=== PATIENT | male | born 1995 | race Two or more races ===

== ENCOUNTER 2019-02-28 13:23 | Emergency (ER) | payer OTHER ==
[2019-02-28 13:34] VITALS: BMI 24.3
--- NOTE | 2019-02-28 14:54 | PDOC ---
History of Present Illness - General Chief Complaint: Pain, Acute Stated Complaint: UPPER/LOWER BACK Time Seen by Provider: 02/28/19 13:51 History Source: Patient Exam Limitations: No Limitations - History of Present Illness Initial Comments: 02/28/19 14:26 23 yo male pmh of wrestling accident s/p C4-C5 spinal cord damage with bilateral LE paraplegia, self catheterizes and uses suppository for BM presents to the ED for 2 weeks of worsening back pain. Pain is located left lateral lower back with radiation to his flank, described as burning, made worse with movement. Denies midline pain or recent trauma to the area however, admits to raising the le Pt does admit to recent increased frequency/production of urine within the last 3 days, denies F/C/N/V, abdominal pain, CP, SOB or new neurological symptoms such as changes in sensation around the anus or new loss of sensation to the lower ext. Past History - Past Medical History Allergies/Adverse Reactions: Allergies Allergy/AdvReac Type Severity Reaction Status Date / Time grass pollen Allergy Verified 02/28/19 13:36 No Known Drug Allergies Allergy Verified 02/28/19 13:36 Home Medications: Ambulatory Orders Baclofen [Lioresal Intrathecal] 20 mcg IT BID 02/28/19 Calcium Carbonate [Calcium] 500 mg PO DAILY 02/28/19 Cetirizine HCl [Zyrtec -] 10 mg PO DAILY 02/28/19 Duloxetine HCl 60 mg PO DAILY 02/28/19 Fludrocortisone Acetate 0.1 mg PO BID 02/28/19 Methylcellulose [Fiber] 500 mg PO DAILY 02/28/19 Midodrine HCl 2.5 mg PO TID 02/28/19 Mirabegron [Myrbetriq] 50 mg PO DAILY 02/28/19 Omeprazole 20 mg PO DAILY 02/28/19 Solifenacin Succinate [Vesicare -] 10 mg PO DAILY 02/28/19 COPD: No HTN: Yes Other medical history: QUADRIPLEGIC - Suicide/Smoking/Psychosocial Hx Smoking History: Never smoked Hx Alcohol Use: No Drug/Substance Use Hx: No *Physical Exam - Vital Signs Last Vital Signs Temp Pulse Resp BP Pulse Ox 98 F 70 17 104/54 L 98 02/28/19 13:32 02/28/19 13:32 02/28/19 13:32 02/28/19 13:32 02/28/19 13:32 *DC/Admit/Observation/Transfer Diagnosis at time of Disposition: Left low back pain Qualifiers: Chronicity: unspecified Sciatica presence: unspecified whether sciatica present Qualified Code(s): M54.5 - Low back pain - Discharge Dispostion Disposition: HOME Condition at time of disposition: Stable Decision to Admit order: No - Referrals Referrals: Chema Webber DO [Staff Physician] - - Patient Instructions Additional Instructions: Please see your Primary Doctor within the next 48 hours. Continue taking calcium supplements and discuss your low calcium levels with your doctor. Make an appointment and see the Orthopedic Doctor referred to you. Continue taking your home dosed medications as prescribed. Use Tylenol over the counter, Ice and rest your back for pain relief. Return to the ER for new or concerning symptoms including but not limited to: excessive prolonged back pain, new changes with functional daily living activities, chest pain or high fevers. Thank you. - Post Discharge Activity
[2019-02-28 15:03] LABS: HEMATOCRIT 42.9 % (35.4-49); HEMOGLOBIN 14.8 GM/dL (11.7-16.9); MCH 31.6 pg (25.7-33.7); MCHC 34.6 g/dl (32.0-35.9); MEAN CELL VOLUME 91.4 fl (80-96); MEAN PLT VOLUME 10.3 fl (7.5-11.1); PLATELET COUNT 167 K/MM3 (134-434); RBC 4.69 M/mm3 (4.00-5.60); WHITE BLOOD COUNT 6.7 K/mm3 (4.0-10.0)
--- NOTE | 2019-02-28 15:14 | PDOC ---
Documentation entered by Aminata Bullard SCRIBE, acting as scribe for Ashwin Chen MD. Ashwin Chen MD: This documentation has been prepared by the Aleah merritt Amanda, SCRIBE, under my direction and personally reviewed by me in its entirety. I confirm that the documentation accurately reflects all work, treatment, procedures, and medical decision making performed by me. Attending Attestation - Resident Resident Name: Damon Garcia - ED Attending Attestation I have performed the following: I have examined & evaluated the patient, The case was reviewed & discussed with the resident, I agree w/resident's findings & plan, Exceptions are as noted - HPI HPI: 02/28/19 14:23 The patient is a 23 year old male with a significant past medical history of paraplegia with limited functions of his upper extremities s/p C4,5 injury wrestling accident 8 years ago (on Baclofen pump, self catheterizes, and uses suppositories daily for BMs), who presents to the ED with 2 weeks of left sided back pain. He states the pain has been progressively increasing over the past week. He reports the pain as a burning sensation which radiates from his left mid back under his scapula to his left flank. He states he lifted his left arm today, felt a pop, and experienced acute increase in pain today. He denies any trauma. He denies any abdominal pain. He denies any new deficits. Pt notes he has had UTIs in the past. He denies chest pain, headache, lightheadedness. He denies fevers, chills, recent illnesses. He denies nausea, vomiting. He denies changes in BMs. - Physicial Exam PE: 02/28/19 15:12 Agree w/ resident exam - Medical Decision Making 02/28/19 15:13 23 M with L sided back pain. Suspect msk pain. Will evaluate for pyelo, as pt self-caths and has h/o UTIs. Pt has baclofen pump, will obtain plain films to assess for placement. Also CXR to r/o pneumo. 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 He takes calcium supplements Given chronicity of hypoCa and lack of EKG findings or symptoms, no indication for IV Ca repletion 02/28/19 17:01 UA negative Dispo pending XRs 02/28/19 17:14 XRs negative Will DC with ortho f/u Pt is well appearing, with normal vitals. Clinically stable for DC at this time. I discussed the physical exam findings, ancillary test results and final diagnoses with the patient. I answered all of the patient's questions. The patient was satisfied with the care received and felt comfortable with the discharge plan and treatment plan. The patient agrees to follow up with the primary care physician within 24-72 hours.
[2019-02-28 15:35] LABS: ALK PHOS 80 U/L (45-117); ANION GAP 4 MMOL/L (8-16); BILIRUBIN,TOTAL 1.5 mg/dL (0.2-1); BLOOD UREA NITROGEN 14 mg/dL (7-18); CHLORIDE 105 mmol/L (98-107); CO2 32 mmol/L (21-32); CREATININE 0.8 mg/dL (0.55-1.3); GLUCOSE,RANDOM 110 mg/dL (74-106); POTASSIUM 4.1 mmol/L (3.5-5.1); SGOT/AST 15 U/L (15-37); SGPT/ALT 28 U/L (13-61); SODIUM 140 mmol/L (136-145); TOT PROT 7.1 g/dl (6.4-8.2)
[2019-02-28 15:39] LABS: CALCIUM 6.2 mg/dL (8.5-10.1)
[2019-02-28] MEDS ORDERED: CALCIUM GLUCONATE 10% - 1,000 MG/10 ML VIAL IVPUSH ONE (16:02)
[2019-02-28] MEDS ORDERED: CALCIUM GLUCONATE 10% - 1,000 MG/10 ML VIAL ONE (16:29)
[2019-02-28 16:53] LABS: EPI CELLS 0.9 /HPF (0-5/HPF); PH,URINE 8.5 (5.0-8.0); URINE APPEARANCE CLEAR; URINE BACTERIA 4.4 /hpf (NEGATIVE); URINE BILIRUBIN NEGATIVE (NEGATIVE); URINE CASTS 0 /lpf (0-8); URINE COLOR YELLOW; URINE GLUCOSE (UA) NEGATIVE (NEGATIVE); URINE KETONE NEGATIVE (NEGATIVE); URINE LEUK ESTERASE 1+ (NEGATIVE); URINE NITRITE NEGATIVE (NEGATIVE); URINE PROTEIN NEGATIVE (NEGATIVE); URINE RBC 0 /hpf (0-4); URINE UROBILINOGEN 0.2 mg/dL (0.2-1.0); URINE WBC 1 /hpf (0-5)
[2019-02-28 18:09] VITALS: PULSE 59; TEMP 98.1
[2019-02-28 19:09] VITALS: BP 117/65
--- NOTE | 2019-03-01 11:26 | EKG ---
Test Reason : Blood Pressure : / mmHG Vent. Rate : 063 BPM Atrial Rate : 063 BPM P-R Int : 146 ms QRS Dur : 092 ms QT Int : 414 ms P-R-T Axes : 052 071 055 degrees QTc Int : 423 ms POOR DATA QUALITY, INTERPRETATION MAY BE ADVERSELY AFFECTED NORMAL SINUS RHYTHM POSSIBLE LEFT ATRIAL ENLARGEMENT NO PREVIOUS ECGS AVAILABLE Confirmed by BRITTANY GONZALES MD ([id number]) on 03/01/2019 11:25:50 AM Referred By: Confirmed By:BRITTANY GONZALES MD
== END 2019-02-28 18:40 | disposition home or self-care (01) ==
LOC: JER 13:23
PROC: 3E0337Z Introduction of Electrolytic and Water Balance Substance into Peripheral Vein, Percutaneous Approach (ICD-10-PCS; principal; 2019-02-28)
DX: M54.5 Low back pain (principal); G82.54 Quadriplegia, C5-C7 incomplete; S14.155S Other incomplete lesion at C5 level of cervical spinal cord, sequela; Y93.72 Activity, wrestling; E83.51 Hypocalcemia
CPT/HCPCS: 36415; 71046-TC-FY; 72070-TC-FY; 72100-TC-FY; 80053; 81003; 85027; 87086; 87186; 93005; 93010; 99283-25

== ENCOUNTER 2019-06-11 11:29 | Inpatient (IN) | payer OTHER ==
[2019-06-11] MEDS ORDERED: SODIUM CHLORIDE 2,245 ML IV ONE (12:48)
[2019-06-11 13:05] LABS: URINE APPEARANCE CLEAR; URINE BILIRUBIN NEGATIVE (NEGATIVE); URINE COLOR YELLOW; URINE GLUCOSE (UA) NEGATIVE (NEGATIVE); URINE KETONE NEGATIVE (NEGATIVE); URINE LEUK ESTERASE 1+ (NEGATIVE); URINE NITRITE NEGATIVE (NEGATIVE); URINE PROTEIN NEGATIVE (NEGATIVE)
--- NOTE | 2019-06-11 13:08 | PDOC ---
History of Present Illness - General Chief Complaint: SIRS, Suspected/Possible Stated Complaint: FEVER Time Seen by Provider: 06/11/19 12:19 History Source: Patient Exam Limitations: No Limitations - History of Present Illness Initial Comments: 06/11/19 13:03 23 yo male pmh of wrestling accident s/p C4-C5 spinal cord damage with bilateral LE paraplegia and automonic dysreflexia, self catheterizes and uses suppository for BM presents to the ED for 1 week of "UTI." Pt reports 1 week of foul smelling, small volume, dark, "sediment filled - almost pus" urine. Feels he is dehydrated despite "lots" of water intake, poor PO over the past week due to worsening nausea, no emesis. Since Monday, febrile with temperature ranging 101-105 by report, also difficulty with sleep over this time and tension headache. Followed by urology at [facility], prescribed Augmentin 875 yesterday for E. coli positive urine. Presents for continued / systemic symptoms. NKDA PMH: as above Past History - Travel Traveled outside of the country in the last 30 days: No Close contact w/someone who was outside of country & ill: No - Past Medical History Allergies/Adverse Reactions: Allergies Allergy/AdvReac Type Severity Reaction Status Date / Time grass pollen Allergy Verified 02/28/19 13:36 No Known Drug Allergies Allergy Verified 02/28/19 13:36 Home Medications: Ambulatory Orders Baclofen [Lioresal Intrathecal] 20 mcg IT BID 02/28/19 Calcium Carbonate [Calcium] 500 mg PO DAILY 02/28/19 Cetirizine HCl [Zyrtec -] 10 mg PO DAILY 02/28/19 Duloxetine HCl 60 mg PO DAILY 02/28/19 Fludrocortisone Acetate 0.1 mg PO AM 02/28/19 Methylcellulose [Fiber] 500 mg PO DAILY 02/28/19 Midodrine HCl 2.5 mg PO BID 02/28/19 Mirabegron [Myrbetriq] 50 mg PO HS 02/28/19 Omeprazole 20 mg PO DAILY 02/28/19 Solifenacin Succinate [Vesicare -] 10 mg PO DAILY 02/28/19 Bisacodyl [Magic Bullet] 10 mg [place] DAILY PRN 06/11/19 Miralax 119 gm Btl - 17 grams PO DAILY MDD 2 06/11/19 Valtrex - 06/11/19 Baclofen 20 mg PO BID 06/12/19 Tizanidine HCl 4 mg PO BID 06/12/19 COPD: No HTN: Yes - Suicide/Smoking/Psychosocial Hx Smoking History: Never smoked Hx Alcohol Use: No Drug/Substance Use Hx: No Review of Systems - Review of Systems Able to Perform ROS?: Yes Is the patient limited Persian proficient: No Constitutional: Yes: See HPI, Chills, Fever. No: Night Sweats, Weakness HEENTM: No: Symptoms Reported Respiratory: No: Symptoms reported, Cough, Shortness of Breath, Wheezing, Productive cough Cardiac (ROS): No: Symptoms Reported, Chest Pain, Irregular Heart Rate, Palpitations, Syncope, Chest Tightness ABD/GI: Yes: See HPI, Nausea. No: Vomiting : Yes: Burning, Dysuria, Frequency, Pain. No: Flank Pain Musculoskeletal: No: Symptoms Reported Integumentary: No: Symptoms Reported Neurological: Yes: Headache All Other Systems: Reviewed and Negative *Physical Exam - Vital Signs Last Vital Signs Temp Pulse Resp BP Pulse Ox 101.8 F H 85 19 105/51 L 97 06/11/19 11:42 06/11/19 11:42 06/11/19 11:42 06/11/19 11:42 06/11/19 11:42 - Physical Exam Comments: 06/11/19 13:16 Vitals reviewed, febrile (102.5 on repeat), hypotensive Gen: Paraplegic man, laying comfortably in bed, pleasant, cooperative CV: RRR, nl s1/s2, no murmurs appreciated Pulm: CTABL, normal WOB, no wheezes / rales / rhonchi Abd: soft, non-distended, surgical scars, TTP suprapubically Back: CVA deferred until repositioning 2/2 paralysis Skin: WWP, dry, no rashes Pulses: 2+ radial, PT Neuro: A&Ox3, EOMI, CN grossly intact, moving UE equally with good strength, paralysis chest-down 06/11/19 15:17 -Left CVA tenderness -No genital / sacral ulcerations or cellulitis Repeat PE for Septic Shock - Vital Signs Vital Signs: Vital Signs Temperature 101.8 F H 06/11/19 11:42 Pulse Rate 85 06/11/19 11:42 Respiratory Rate 19 06/19 11:42 Blood Pressure 105/51 L 06/11/19 11:42 O2 Sat by Pulse Oximetry (%) 97 06/11/19 11:42 I have reviewed the most recent vital signs: Yes - PE CV for Spetic Shock: Regular Rhythm, Regular Rate Lungs: Lungs Clear, Normal Breath Sounds Vascular: Left Radial: 2+, Right Radial: 2+, Left Doralis Pedis: 2+, Right Dorsalis Pedis: 2+ Capillary Refill: <3 seconds Skin exam: Normal Color, Warm, Dry ED Treatment Course - LABORATORY CBC & Chemistry Diagram: 06/14/19 08:07 06/14/19 08:07 - RADIOLOGY Radiology Studies Ordered: Category Date Time Status CHEST X-RAY PORTABLE* [RAD] Stat Radiology 06/11/19 12:48 Ordered Medical Decision Making - Medical Decision Making 06/11/19 13:10 23 yo male pmh of wrestling accident s/p C4-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 Hypotensive, febrile. Concerning for Sepsis, likely UTI source, r/o pyelo, bacteremia. -Sepsis order set -Fregoso (as opposed to straight cath, pt request) -1g Tylenol, IV -Likely broad spectrum ABX following cultures 06/11/19 15:15 -Febrile reduced to 100.6 rectal after tylenol -s/p 1g ceftriaxone -CTAP w/contrast for pyelo evaluation, NCHCT -On re-examination patient without genital / perianal /sacral ulcerations, crepitus, or cellulitis Dispo: Admit to inpatient for sepsis 2/2 pyelonephritis *DC/Admit/Observation/Transfer Diagnosis at time of Disposition: Systemic inflammatory response syndrome (SIRS) Sepsis Qualifiers: Sepsis type: sepsis due to unspecified organism Sepsis acute organ dysfunction status: unspecified Qualified Code(s): A41.9 - Sepsis, unspecified organism - Discharge Dispostion Condition at time of disposition: Guarded - Referrals - Patient Instructions - Post Discharge Activity
[2019-06-11] MEDS ORDERED: ACETAMINOPHEN INJECTION 100 ML IVPB ONE (13:13)
[2019-06-11] MEDS ORDERED: ACETAMINOPHEN 1000 MG/100 ML VIAL (NON FORMULARY) IVPB ONE ×2 (13:13→18:12)
[2019-06-11 13:23] LABS: EPI CELLS 5.3 /HPF (0-5/HPF); HYALINE CASTS 5.25 /lpf (0-8); URINE BACTERIA 0.8 /hpf (NEGATIVE); URINE RBC 0.3 /hpf (0-4); URINE WBC 0.5 /hpf (0-5)
[2019-06-11 13:27] LABS: VENOUS PC02 41.1 mmHg (41-51); VENOUS PH 7.43 (7.31-7.41); VENOUS PO2 42.1 mmHg (30-40)
[2019-06-11] MEDS ORDERED: CEFTRIAXONE 1,000 MG in DEXTROSE 5%-WATER - 50 ML IVPB ONE (13:28)
[2019-06-11 13:31] LABS: BASO % 0.2 % (0-2.0); LYMPH % 5.4 % (8-40); MCH 31.1 pg (25.7-33.7); MCHC 34.1 g/dl (32.0-35.9); MEAN CELL VOLUME 91.3 fl (80-96); MEAN PLT VOLUME 9.8 fl (7.5-11.1); MONO % 13.5 % (3.8-10.2); NEUT % 80.9 % (42.8-82.8); PLATELET COUNT 146 K/MM3 (134-434); RBC 4.16 M/mm3 (4.00-5.60); RDW 13.5 % (11.9-15.9); WHITE BLOOD COUNT 12.2 K/mm3 (4.0-10.0)
[2019-06-11 13:39] LABS: INR 1.78 (0.83-1.09); PROTHROMBIN TIME (PATIENT) 21.1 SEC (9.7-13.0)
[2019-06-11 13:42] LABS: ACTIVATED PTT 30.4 SECONDS (25.2-36.5)
[2019-06-11 14:03] LABS: ALBUMIN 3.3 g/dl (3.4-5.0); BILIRUBIN,TOTAL 3.7 mg/dL (0.2-1); CALCIUM 8.8 mg/dL (8.5-10.1); POTASSIUM 3.8 mmol/L (3.5-5.1); TOT PROT 6.4 g/dl (6.4-8.2)
[2019-06-11] MEDS ORDERED: CEFTRIAXONE 1 GM/50 ML BAG ONE (14:32)
--- NOTE | 2019-06-11 15:34 | PDOC ---
Documentation entered by Alannah Mcgrath SCRIBE, acting as scribe for Ashwin Chen MD. Ashwin Chen MD: This documentation has been prepared by the nasrinibe, Alannah Mcgrath SCRIBE, under my direction and personally reviewed by me in its entirety. I confirm that the documentation accurately reflects all work, treatment, procedures, and medical decision making performed by me. Attending Attestation - Resident Resident Name: AyoAidan - ED Attending Attestation I have performed the following: I have examined & evaluated the patient, The case was reviewed & discussed with the resident, I agree w/resident's findings & plan, Exceptions are as noted - HPI HPI: 06/11/19 15:34 23 M with h/o C4-C5 spinal cord damage with bilateral LE paraplegia and automonic dysreflexia, self catheterizes, presenting to ED with dysuria and foul smelling urine x 1 week. Pt states he has h/o recurrent UTIs. He states that he went to his PMD yesterday and was started on augmentin. However, today pt began to have L flank pain. Pt has also had fevers at home. - Physicial Exam PE: 06/11/19 15:38 "GENERAL: Awake, alert, and fully oriented, in no acute distress. HEAD: No signs of trauma EYES: PERRLA, EOMI, sclera anicteric, conjunctiva clear ENT: Auricles normal inspection, hearing grossly normal, nares patent, oropharynx clear without exudates. Moist mucosa NECK: Nontender, no stepoffs, Normal ROM, supple, no lymphadenopathy, JVD, or masses LUNGS: Breath sounds equal, clear to auscultation bilaterally. No wheezes, and no crackles HEART: Regular rate and rhythm, normal S1 and S2, no murmurs, rubs or gallops ABDOMEN: Soft, nontender, normoactive bowel sounds. No guarding, no rebound. No masses EXTREMITIES: Normal range of motion, no edema. No clubbing or cyanosis. No cords, erythema, or tenderness NEUROLOGICAL: Cranial nerves II through XII intact. normal cerebellar function SKIN: Warm, Dry, normal turgor, no rashes or lesions noted - Medical Decision Making 06/11/19 15:38 23 M with dysuria, L flank pain, and fever. Suspect pyelo. - Labs, cultures - CXR, UA
--- NOTE | 2019-06-11 16:03 | EKG ---
Test Reason : Blood Pressure : / mmHG Vent. Rate : 094 BPM Atrial Rate : 094 BPM P-R Int : 136 ms QRS Dur : 096 ms QT Int : 350 ms P-R-T Axes : 050 053 045 degrees QTc Int : 437 ms NORMAL SINUS RHYTHM POSSIBLE LEFT ATRIAL ENLARGEMENT INCOMPLETE RBBB BORDERLINE ECG Confirmed by MD JEREL, DAHLIA ([id number]) on 06/11/2019 4:03:06 PM Referred By: Confirmed By:DAHLIA BELTRÁN MD
--- NOTE | 2019-06-11 17:28 | HP ---
Admitting History and Physical - Primary Care Physician PCP: Davy De Oliveira - Admission History of Present Illness: Patient is a 23 year old male with a significant past medical history of C4-C5 spinal cord damage (has implanted baclophen pump), bilateral lower extremity paraplegia and automonic dysreflexia. He self catheterizes approximately 7 times per day and uses sterile technique per patient. He self catherizes, but his aide also assists him. He presents to the ED with c/o of a UTI for approximately one week with subjective fevers of 101F-105F per patient. He reports one week of foul smelling urine with dark sediments and some pus in the urine. He feels weak and dehydrated despite consuming a large amount of water at home. He was prescribed Augmentin from his urologist at another facility and was found to have ecoli in his urine. He took the antibiotics, however, his symptoms worsened overnight which prompted an ED visit. On exam patient is awake, alert and having rigors. He was admitted with a fever of 102.5, mild hypotension, elevated WBC. He received rocephin in the Ed. Overnight will start on Zosyn and awaiting blood and urine cultures. ID and urology to be consulted. imaging: abd/pelvis ct scan with contrast 06/11/2019: heterogenous enhancement of both kidneys, right greater than the left suggestive of bilateral pyelonephritis, right greater than the left. History Source: Patient Limitations to Obtaining History: No Limitations, Physical Impairment - Past Medical History Gastrointestinal: Yes: Other (implanted baclophen pump) - Smoking History Smoking history: Never smoked - Alcohol/Substance Use Hx Alcohol Use: No History of Substance Use: reports: None - Social History Usual Living Arrangement: Yes: Other (has [facility]) History of Recent Travel: No Home Medications - Allergies Allergies/Adverse Reactions: Allergies Allergy/AdvReac Type Severity Reaction Status Date / Time grass pollen Allergy Verified 02/28/19 13:36 No Known Drug Allergies Allergy Verified 02/28/19 13:36 - Home Medications Home Medications: Ambulatory Orders Baclofen [Lioresal Intrathecal] 20 mcg IT BID 02/28/19 Calcium Carbonate [Calcium] 500 mg PO DAILY 02/28/19 Cetirizine HCl [Zyrtec -] 10 mg PO DAILY 02/28/19 Duloxetine HCl 60 mg PO DAILY 02/28/19 Fludrocortisone Acetate 0.1 mg PO AM 02/28/19 Methylcellulose [Fiber] 500 mg PO DAILY 02/28/19 Midodrine HCl 2.5 mg PO BID 02/28/19 Mirabegron [Myrbetriq] 50 mg PO DAILY 02/28/19 Omeprazole 20 mg PO DAILY 02/28/19 Solifenacin Succinate [Vesicare -] 10 mg PO DAILY 02/28/19 Bisacodyl [Magic Bullet] 10 mg [place] DAILY PRN 06/11/19 Miralax 119 gm Btl - 17 grams PO DAILY MDD 2 06/11/19 Valtrex - 06/11/19 Family Disease History - Family Disease History Family Disease History: Other: Grandparent, Father, Mother, Brother, Sister, Son , Daughter Review of Systems - Review of Systems Constitutional: reports: Chills, Fever, Lethargy, Loss of Appetite, Malaise, Weakness Eyes: reports: No Symptoms HENT: reports: No Symptoms Neck: reports: No Symptoms Cardiovascular: reports: No Symptoms Respiratory: reports: No Symptoms Gastrointestinal: reports: No Symptoms Genitourinary: reports: Flank Pain, Incontinence, Pain, Urgency Musculoskeletal: reports: Muscle Weakness Integumentary: reports: No Symptoms Neurological: reports: Weakness Physical Examination Vital Signs: Vital Signs Temperature 99.6 F 06/11/19 16:39 Pulse Rate 82 06/11/19 16:39 Respiratory Rate 16 06/11/19 16:39 Blood Pressure 110/62 06/11/19 16:39 O2 Sat by Pulse Oximetry (%) 100 06/11/19 16:39 Constitutional: Yes: Anxious Eyes: Yes: WNL HENT: Yes: WNL, Atraumatic Neck: Yes: WNL, Supple Cardiovascular: Yes: Regular Rate and Rhythm Respiratory: Yes: Regular Gastrointestinal: Yes: Normal Bowel Sounds, Soft, Other (implanted baclophen pump) Renal/: Yes: CVA Tenderness - Left, CVA Tenderness - Right, Garnica Present Musculoskeletal: Yes: Other (paraplegic) Edema: LLE: Trace, RLE: Trace Integumentary: Yes: WNL Neurological: Yes: Alert, Oriented Psychiatric: Yes: Alert, Oriented Labs: CBC, BMP 06/11/19 13:00 06/11/19 13:00 Imaging - Results Cat Scan: Report Reviewed Problem List - Problems (1) Sepsis Assessment/Plan: hydrate with NS @ 125, start Zosyn q 4 pending ID evaluation. Await urine and blood cultures. Monitor garnica output tylenol IV x 1 now for rigors, then continue PO for fevers ID and urology to be consulted Received Rocephin in the Ed Code(s): A41.9 - SEPSIS, UNSPECIFIED ORGANISM (2) Pyelonephritis of right kidney Assessment/Plan: hydrate with NS @ 125, start Zosyn q 4 pending ID and urology evaluation. Await urine and blood cultures. Code(s): N12 - TUBULO-INTERSTITIAL NEPHRITIS, NOT [facility] ACUTE OR CHRONIC (3) Pyelonephritis of left kidney Assessment/Plan: bilateral heterogenous enhancement of both kidneys per ct scan, right worse than left. consistent with pyelenephritis. Code(s): N12 - TUBULO-INTERSTITIAL NEPHRITIS, NOT [facility] ACUTE OR CHRONIC (4) Functional quadriplegia Assessment/Plan: bed bound, turn and position q 2 maintain bony prominences without skin breakdown Code(s): R53.2 - FUNCTIONAL QUADRIPLEGIA (5) Prophylactic measure Assessment/Plan: fen: ns @ 125cc/hr monitor electrolytes regular diet prophy heparin tid bacid full code Code(s): Z29.9 - ENCOUNTER FOR PROPHYLACTIC MEASURES, UNSPECIFIED Visit type - Emergency Visit Emergency Visit: Yes ED Registration Date: 06/11/19 Care time: The patient presented to the Emergency Department on the above date and was hospitalized for further evaluation of their emergent condition. - New Patient This patient is new to me today: Yes Date on this admission: 06/12/19 - Critical Care Critical Care patient: No
[2019-06-11] MEDS ORDERED: PIPERACILLIN/TAZOB 3.375 GM 3.375 GM in DEXTROSE 5%-WATER - 50 ML IVPB SCH (18:15)
[2019-06-11] MEDS: SODIUM CHLORIDE 1,000 ML IV SCH (18:17)
[2019-06-11] MEDS ORDERED: PIPERACILLIN/TAZOBACTAM 3.375 GM VIAL IVPB ONE (18:54)
[2019-06-11] MEDS ORDERED: DEXTROSE 5%-WATER - 50 ML IVPB ONE (18:54)
[2019-06-11] MEDS: PIPERACILLIN/TAZOB 3.375 GM 3.375 GM in DEXTROSE 5%-WATER - 50 ML IVPB SCH (18:59)
[2019-06-11 20:39] VITALS: BMI 27.4
[2019-06-11] MEDS: FLUDROCORTISONE ACETATE 0.1 MG TABLET (FP) PO SCH (22:31)
[2019-06-11] MEDS: HEPARIN NA (PORCINE) 5,000 UNITS/ML 1ML VIAL SQ SCH (22:31)
[2019-06-12] MEDS ORDERED: PIPERACILLIN/TAZOBACTAM 3.375 GM VIAL IVPB ONE ×3 (01:23→17:47)
[2019-06-12] MEDS ORDERED: DEXTROSE 5%-WATER - 50 ML IVPB ONE ×3 (01:24→17:47)
[2019-06-12] MEDS: PIPERACILLIN/TAZOB 3.375 GM 3.375 GM in DEXTROSE 5%-WATER - 50 ML IVPB SCH ×3 (01:34→17:57)
[2019-06-12] MEDS ORDERED: BISACODYL 10 MG SUPP.RECT PR ONE (01:50)
[2019-06-12] MEDS: ACETAMINOPHEN 325 MG TABLET (FP) PO PRN ×2 (02:11→10:00)
[2019-06-12] MEDS: SODIUM CHLORIDE 1,000 ML IV SCH ×4 (03:14→22:08)
[2019-06-12] MEDS: HEPARIN NA (PORCINE) 5,000 UNITS/ML 1ML VIAL SQ SCH ×3 (06:53→22:04)
[2019-06-12] MEDS ORDERED: PATIENT'S OWN MEDICATION (NON-FORMULARY) (Mirabegron [Myrbetriq] 50 MG) PO SCH (10:00)
[2019-06-12] MEDS: DULoxetine HCL 30 MG CAPSULE.DR PO SCH (10:00)
[2019-06-12] MEDS: FLUDROCORTISONE ACETATE 0.1 MG TABLET (FP) PO SCH ×2 (10:01→11:12)
[2019-06-12] MEDS: LACTOBACILLUS ACIDOPHILUS 1 TABLET PO SCH (10:01)
[2019-06-12] MEDS ORDERED: METHYLCELLULOSE 500 MG PO SCH (10:30)
[2019-06-12] MEDS ORDERED: LORATADINE 10 MG TABLET PO SCH (10:30)
--- NOTE | 2019-06-12 10:39 | PN ---
Progress Note, Physician Chief Complaint: rigors, back pain and nausea History of Present Illness: Patient is a 23 year old male with a significant past medical history of C4-C5 spinal cord damage (has implanted baclophen pump-left side of abdomen which is refilled q 3 months at [facility]), bilateral lower extremity paraplegia and automonic dysreflexia. He self catheterizes approximately 7 times per day and uses sterile technique per patient. He self catherizes, but his aide also assists him. He presents to the ED 06/11/19 with c/o of a UTI for approximately one week with subjective fevers of 101F-105F per patient. He reports one week of foul smelling urine with dark sediments and some pus in the urine. He feels weak and dehydrated despite consuming a large amount of water at home. He was prescribed Augmentin from his urologist at another facility and was found to have ecoli in his urine. He took the antibiotics, however, his symptoms worsened overnight which prompted an ED visit. On exam patient is awake, alert and having rigors. Overnight he was febrile. Overnight he was started on Zosyn and awaiting blood and urine cultures. ID and urology consulted. imaging: abd/pelvis ct scan with contrast 06/11/2019: heterogenous enhancement of both kidneys, right greater than the left suggestive of bilateral pyelonephritis, right greater than the left. - Current Medication List Current Medications: Active Medications Acetaminophen (Ofirmev Injection -) 1,000 mg IVPB Q6H PRN PRN Reason: PAIN OR FEVER Bisacodyl (Dulcolax Suppository -) 10 mg RC DAILY [facility] Calcium Carbonate (Os-Cody 500mg -) 500 mg PO DAILY [facility] Duloxetine HCl (Cymbalta -) 60 mg PO DAILY [facility] Last Admin: 06/12/19 10:00 Dose: 60 mg Fludrocortisone Acetate (Florinef -) 0.1 mg PO BID [facility] Last Admin: 06/12/19 10:01 Dose: 0.1 mg Heparin Sodium (Porcine) (Heparin -) 5,000 unit SQ TID [facility] Last Admin: 06/12/19 06:53 Dose: 5,000 unit Piperacillin Sod/Tazobactam (Sod 3.375 gm/ Dextrose) 50 mls @ 100 mls/hr IVPB Q8H-IV [facility]; Protocol Sodium Chloride (Normal Saline -) 1,000 mls @ 100 mls/hr IV ASDIR [facility] Lactobacillus Acidophilus (Bacid -) 1 tab PO DAILY [facility] Last Admin: 06/12/19 10:01 Dose: 1 tab Midodrine (Proamatine -) 2.5 mg PO BID [facility] Non-Formulary Medication (Mirabegron [Myrbetriq]) 50 mg PO DAILY [facility] Non-Formulary Medication (Cetirizine Hcl) 10 mg PO DAILY [facility] Non-Formulary Medication (Methylcellulose [Fiber]) 500 mg PO DAILY [facility] Non-Formulary Medication (Miralax 119 Gm Btl -) 17 grams PO DAILY [facility] Non-Formulary Medication (Solifenacin Succinate [Vesicare -]) 10 mg PO DAILY [facility] Ondansetron HCl (Zofran Injection) 4 mg IVPUSH Q6H PRN PRN Reason: NAUSEA AND/OR VOMITING - Objective Vital Signs: Vital Signs Temperature 99.6 F 06/12/19 09:30 Pulse Rate 78 06/12/19 09:35 Respiratory Rate 20 06/12/19 09:30 Blood Pressure 160/107 H 06/12/19 09:35 O2 Sat by Pulse Oximetry (%) 99 06/11/19 20:30 Constitutional: Yes: Anxious Eyes: Yes: WNL HENT: Yes: Atraumatic Neck: Yes: Supple Cardiovascular: Yes: Regular Rate and Rhythm Respiratory: Yes: Regular, CTA Bilaterally Gastrointestinal: Yes: Soft, Other (left abdomen with implanted intrathecal pump (baclophen)) ...Rectal Exam: Yes: Deferred Extremities: Yes: WNL Edema: No Wound/Incision: Yes: Clean/Dry Neurological: Yes: WNL, Alert, Oriented Labs: CBC, BMP 06/11/19 13:00 06/11/19 13:00 INR, PTT INR 1.78 (0.83-1.09) H 06/11/19 13:15 Problem List - Problems (1) Sepsis Assessment/Plan: hydrate with NS @ 100, start Zosyn q 6 pending ID evaluation. Await urine and blood cultures. Monitor garnica output - currently clear daryl colored tylenol IV for fevers and pain ID and urology consulted Received Rocephin in the Ed, started on zosyn overnight Code(s): A41.9 - SEPSIS, UNSPECIFIED ORGANISM (2) Pyelonephritis of right kidney Assessment/Plan: hydrate with NS @ 100, start Zosyn q 4 pending ID and urology evaluation. Await urine and blood cultures. Code(s): N12 - TUBULO-INTERSTITIAL NEPHRITIS, NOT SPCF ACUTE OR CHRONIC (3) Pyelonephritis of left kidney Assessment/Plan: bilateral heterogenous enhancement of both kidneys per ct scan, right worse than left. consistent with pyelenephritis. Code(s): N12 - TUBULO-INTERSTITIAL NEPHRITIS, NOT SPCF ACUTE OR CHRONIC (4) Functional quadriplegia Assessment/Plan: bed bound, turn and position q 2 maintain bony prominences without skin breakdown Code(s): R53.2 - FUNCTIONAL QUADRIPLEGIA (5) Prophylactic measure Assessment/Plan: fen: ns @ 100c/hr monitor electrolytes regular diet prophy heparin tid bacid full code Code(s): Z29.9 - ENCOUNTER FOR PROPHYLACTIC MEASURES, UNSPECIFIED Visit type - Emergency Visit Emergency Visit: Yes ED Registration Date: 06/11/19 Care time: The patient presented to the Emergency Department on the above date and was hospitalized for further evaluation of their emergent condition. - New Patient This patient is new to me today: No - Critical Care Critical Care patient: No - Discharge Referral Referred to [facility] Med P.C.: No
--- NOTE | 2019-06-12 11:09 | CON.GU ---
Consult Consult Specialty:: Referred by:: medicine Reason for Consultation:: 23 year old with UTI and neurogenic bladder - History of Present Illness Chief Complaint: 23 year old with UTI and neurogenic bladder History of Present Illness: 23 year old with SC injury and neurogenic bladder. He is under the care of a urologist at [facility]. He self catheterizes. He developed fever and chills and was admitted and garnica cath was placed. urine is clear. - History Source History Provided By: Patient - Past Medical History Gastrointestinal: Yes: Other (implanted baclophen pump) Renal/: Yes: Neurogenic Bladder - Alcohol/Substance Use Hx Alcohol Use: No History of Substance Use: reports: None - Smoking History Smoking history: Never smoked - Social History History of Recent Travel: No Home Medications - Allergies Allergies/Adverse Reactions: Allergies Allergy/AdvReac Type Severity Reaction Status Date / Time grass pollen Allergy Verified 02/28/19 13:36 No Known Drug Allergies Allergy Verified 02/28/19 13:36 - Home Medications Home Medications: Ambulatory Orders Baclofen [Lioresal Intrathecal] 20 mcg IT BID 02/28/19 Calcium Carbonate [Calcium] 500 mg PO DAILY 02/28/19 Cetirizine HCl [Zyrtec -] 10 mg PO DAILY 02/28/19 Duloxetine HCl 60 mg PO DAILY 02/28/19 Fludrocortisone Acetate 0.1 mg PO AM 02/28/19 Methylcellulose [Fiber] 500 mg PO DAILY 02/28/19 Midodrine HCl 2.5 mg PO BID 02/28/19 Mirabegron [Myrbetriq] 50 mg PO DAILY 02/28/19 Omeprazole 20 mg PO DAILY 02/28/19 Solifenacin Succinate [Vesicare -] 10 mg PO DAILY 02/28/19 Bisacodyl [Magic Bullet] 10 mg ME DAILY PRN 06/11/19 Miralax 119 gm Btl - 17 grams PO DAILY [facility] 2 06/11/19 Valtrex - 06/11/19 Family Disease History - Family Disease History Family Disease History: Other: Grandparent, Father, Mother, Brother, Sister, Son , Daughter Review of Systems - Review of Systems Genitourinary: reports: No Symptoms Physical Exam- Vital Signs: Vital Signs Temperature 99.6 F 06/12/19 09:30 Pulse Rate 78 06/12/19 09:35 Respiratory Rate 20 06/12/19 09:30 Blood Pressure 160/107 H 06/12/19 09:35 O2 Sat by Pulse Oximetry (%) 99 06/11/19 20:30 Gastrointestinal: Yes: Soft Renal/: Yes: Garnica Present. No: CVA Tenderness - Left, CVA Tenderness - Right , Hematuria, Incontinence Labs: CBC, BMP 06/11/19 13:00 06/11/19 13:00 Problem List - Problems (1) Pyelonephritis of left kidney Assessment/Plan: CT without obstruction, continue with abx until fevers are gone. May remove garnica and resume self cath thereafter and follow up with his urologist Code(s): N12 - TUBULO-INTERSTITIAL NEPHRITIS, NOT SPCF ACUTE OR CHRONIC (2) Pyelonephritis of right kidney Code(s): N12 - TUBULO-INTERSTITIAL NEPHRITIS, NOT SPCF ACUTE OR CHRONIC
[2019-06-12] MEDS: CALCIUM (OYSTER SHELL) 500 MG TABLET (FP) PO SCH (11:14)
[2019-06-12] MEDS: ACETAMINOPHEN 1000 MG/100 ML VIAL (NON FORMULARY) IVPB PRN ×2 (11:18→22:05)
[2019-06-12] MEDS: ONDANSETRON 4 MG/2 ML VIAL IVPUSH PRN ×2 (11:18→22:03)
[2019-06-12] MEDS: SOLIFENACIN SUCCINATE 5 MG TAB PO SCH (11:19)
[2019-06-12 11:37] LABS: BASO % 0.4 % (0-2.0); EOS % 0.2 % (0-4.5); HEMATOCRIT 37.5 % (35.4-49); HEMOGLOBIN 12.7 GM/dL (11.7-16.9); LYMPH % 6.9 % (8-40); MCH 31.1 pg (25.7-33.7); MCHC 33.7 g/dl (32.0-35.9); MEAN CELL VOLUME 92.3 fl (80-96); MEAN PLT VOLUME 9.7 fl (7.5-11.1); MONO % 13.1 % (3.8-10.2); NEUT % 79.4 % (42.8-82.8); PLATELET COUNT 177 K/MM3 (134-434); RBC 4.07 M/mm3 (4.00-5.60); RDW 13.5 % (11.9-15.9); WHITE BLOOD COUNT 9.5 K/mm3 (4.0-10.0)
--- NOTE | 2019-06-12 11:49 | CON.ID ---
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 He self catheterizes approximately 7 times per day and uses sterile technique per patient. He self catherizes, but his aide also assists him. He presents to the ED with c/o of a UTI for approximately one week with subjective fevers of 101F-105F per patient. He reports one week of foul smelling urine with dark sediments and some pus in the urine. He feels weak and dehydrated despite consuming a large amount of water at home. He was prescribed Augmentin from his urologist at another facility and was found to have ecoli in his urine. He took the antibiotics, however, his symptoms worsened overnight which prompted an ED visit. On exam patient is awake, alert and having rigors. He was admitted with a fever of 102.5, mild hypotension, elevated WBC. He received rocephin in the Ed. Overnight will start on Zosyn and awaiting blood and urine cultures. ID and urology to be consulted. - Past Medical History Gastrointestinal: Yes: Other (implanted baclophen pump) Renal/: Yes: Neurogenic Bladder - Alcohol/Substance Use Hx Alcohol Use: No History of Substance Use: reports: None - Smoking History Smoking history: Never smoked - Social History History of Recent Travel: No Home Medications - Allergies Allergies/Adverse Reactions: Allergies Allergy/AdvReac Type Severity Reaction Status Date / Time grass pollen Allergy Verified 02/28/19 13:36 No Known Drug Allergies Allergy Verified 02/28/19 13:36 - Home Medications Home Medications: Ambulatory Orders Baclofen [Lioresal Intrathecal] 20 mcg IT BID 02/28/19 Calcium Carbonate [Calcium] 500 mg PO DAILY 02/28/19 Cetirizine HCl [Zyrtec -] 10 mg PO DAILY 02/28/19 Duloxetine HCl 60 mg PO DAILY 02/28/19 Fludrocortisone Acetate 0.1 mg PO AM 02/28/19 Methylcellulose [Fiber] 500 mg PO DAILY 02/28/19 Midodrine HCl 2.5 mg PO BID 02/28/19 Mirabegron [Myrbetriq] 50 mg PO DAILY 02/28/19 Omeprazole 20 mg PO DAILY 02/28/19 Solifenacin Succinate [Vesicare -] 10 mg PO DAILY 02/28/19 Bisacodyl [Magic Bullet] 10 mg UT DAILY PRN 06/11/19 Miralax 119 gm Btl - 17 grams PO DAILY [facility] 2 06/11/19 Valtrex - 06/11/19 Family Disease History - Family Disease History Family Disease History: Other: Grandparent, Father, Mother, Brother, Sister, Son , Daughter Physical Exam Vital Signs: Vital Signs Temperature 99.6 F 06/12/19 09:30 Pulse Rate 78 06/12/19 09:35 Respiratory Rate 20 06/12/19 09:30 Blood Pressure 160/107 H 06/12/19 09:35 O2 Sat by Pulse Oximetry (%) 99 06/11/19 20:30
[2019-06-12 12:08] LABS: ALBUMIN 2.8 g/dl (3.4-5.0); BILIRUBIN,TOTAL 2.4 mg/dL (0.2-1); BLOOD UREA NITROGEN 5.8 mg/dL (7-18); CALCIUM 8.4 mg/dL (8.5-10.1); CREATININE 1.1 mg/dL (0.55-1.3); MAGNESIUM 1.9 mg/dL (1.8-2.4); POTASSIUM 3.5 mmol/L (3.5-5.1); TOT PROT 5.8 g/dl (6.4-8.2)
[2019-06-12] MEDS ORDERED: SODIUM PHOSPHATE/NA BIPHOS 133 ML ENEMA PR ONE (14:08)
[2019-06-12] MEDS: MIDODRINE HCL 2.5 MG TABLET PO SCH ×2 (14:12→17:57)
[2019-06-12] MEDS: POLYETHYLENE GLYCOL 3350 119 GM BTL PO SCH (14:12)
[2019-06-12] MEDS: LORATADINE 10 MG TABLET PO SCH (14:37)
[2019-06-12] MEDS: BACLOFEN 10 MG TABLET (FP) PO SCH ×2 (14:38→21:59)
[2019-06-12] MEDS: PANTOPRAZOLE 20 MG TABLET (FP) PO SCH (14:38)
[2019-06-12] MEDS: BISACODYL 10 MG SUPP.RECT RC SCH (14:40)
[2019-06-12] MEDS: valACYclovir HCL 500 MG TABLET (FP) PO SCH ×2 (15:52→22:07)
[2019-06-12] MEDS: TIZANIDINE HCL 4 MG TABLET PO SCH ×2 (15:52→22:03)
[2019-06-12] MEDS ORDERED: PT OWN MED DRAWER 7, Y5N ONE (18:30)
[2019-06-12] MEDS: oxyCODONE HCL 5 MG TABLET PO PRN (21:59)
[2019-06-13] MEDS ORDERED: DEXTROSE 5%-WATER - 50 ML IVPB ONE ×3 (01:29→17:04)
[2019-06-13] MEDS ORDERED: PIPERACILLIN/TAZOBACTAM 3.375 GM VIAL IVPB ONE ×3 (01:29→17:04)
[2019-06-13] MEDS: PIPERACILLIN/TAZOB 3.375 GM 3.375 GM in DEXTROSE 5%-WATER - 50 ML IVPB SCH ×3 (01:49→17:23)
[2019-06-13] MEDS: HEPARIN NA (PORCINE) 5,000 UNITS/ML 1ML VIAL SQ SCH ×3 (06:34→21:09)
[2019-06-13 08:12] LABS: BASO % 0.3 % (0-2.0); EOS % 2.2 % (0-4.5); HEMATOCRIT 34.5 % (35.4-49); HEMOGLOBIN 11.9 GM/dL (11.7-16.9); LYMPH % 13.4 % (8-40); MCH 31.5 pg (25.7-33.7); MCHC 34.5 g/dl (32.0-35.9); MEAN CELL VOLUME 91.4 fl (80-96); MEAN PLT VOLUME 9.8 fl (7.5-11.1); MONO % 12.5 % (3.8-10.2); NEUT % 71.6 % (42.8-82.8); PLATELET COUNT 186 K/MM3 (134-434); RBC 3.78 M/mm3 (4.00-5.60); RDW 13.6 % (11.9-15.9); WHITE BLOOD COUNT 8.9 K/mm3 (4.0-10.0)
[2019-06-13 08:32] LABS: ALBUMIN 2.6 g/dl (3.4-5.0); BILIRUBIN,TOTAL 1.6 mg/dL (0.2-1); BLOOD UREA NITROGEN 5.7 mg/dL (7-18); CALCIUM 7.9 mg/dL (8.5-10.1); CREATININE 0.7 mg/dL (0.55-1.3); POTASSIUM 3.6 mmol/L (3.5-5.1); TOT PROT 5.6 g/dl (6.4-8.2)
--- NOTE | 2019-06-13 09:37 | PN ---
Progress Note, Physician History of Present Illness: stable no new issues still with pain still having fevers - Current Medication List Current Medications: Active Medications Acetaminophen (Ofirmev Injection -) 1,000 mg IVPB Q6H PRN PRN Reason: FEVER Last Admin: 06/12/19 22:05 Dose: 1,000 mg Baclofen (Lioresal -) 20 mg PO BID [facility] Last Admin: 06/12/19 21:59 Dose: 20 mg Bisacodyl (Dulcolax Suppository -) 10 mg RC DAILY [facility] Last Admin: 06/12/19 14:40 Dose: Not Given Calcium Carbonate (Os-Cody 500mg -) 500 mg PO DAILY [facility] Last Admin: 06/12/19 11:14 Dose: 500 mg Duloxetine HCl (Cymbalta -) 60 mg PO DAILY [facility] Last Admin: 06/12/19 10:00 Dose: 60 mg Heparin Sodium (Porcine) (Heparin -) 5,000 unit SQ TID [facility] Last Admin: 06/13/19 06:34 Dose: 5,000 unit Sodium Chloride (Normal Saline -) 1,000 mls @ 100 mls/hr IV ASDIR [facility] Last Admin: 06/12/19 22:08 Dose: 100 mls/hr Piperacillin Sod/Tazobactam (Sod 3.375 gm/ Dextrose) 50 mls @ 100 mls/hr IVPB Q8H-IV [facility]; Protocol Last Admin: 06/13/19 01:49 Dose: 100 mls/hr Lactobacillus Acidophilus (Bacid -) 1 tab PO DAILY [facility] Last Admin: 06/12/19 10:01 Dose: 1 tab Loratadine (Claritin -) 10 mg PO DAILY [facility] Last Admin: 06/12/19 14:37 Dose: Not Given Midodrine (Proamatine -) 2.5 mg PO BID-MID [facility] Last Admin: 06/12/19 17:57 Dose: Not Given Non-Formulary Medication (Mirabegron [Myrbetriq]) 50 mg PO DAILY [facility] Non-Formulary Medication (Methylcellulose [Fiber]) 500 mg PO DAILY [facility] Ondansetron HCl (Zofran Injection) 4 mg IVPUSH Q6H PRN PRN Reason: NAUSEA AND/OR VOMITING Last Admin: 06/12/19 22:03 Dose: 4 mg Oxycodone HCl (Roxicodone -) 5 mg PO BID PRN PRN Reason: PAIN LEVEL 7 - 10 Last Admin: 06/12/19 21:59 Dose: 5 mg Pantoprazole Sodium (Protonix -) 20 mg PO DAILY [facility] Last Admin: 06/12/19 14:38 Dose: 20 mg Polyethylene Glycol (Miralax (For Daily Use) -) 17 gm PO DAILY [facility] Last Admin: 06/12/19 14:12 Dose: 17 gm Solifenacin (Vesicare -) 10 mg PO DAILY [facility] Last Admin: 06/12/19 11:19 Dose: 10 mg Tizanidine HCl (Tizanidine Hcl) 4 mg PO BID [facility] Last Admin: 06/12/19 22:03 Dose: 4 mg Valacyclovir HCl (Valtrex -) 500 mg PO BID [facility] Last Admin: 06/12/19 22:07 Dose: 500 mg - Objective Vital Signs: Vital Signs Temperature 98.1 F 06/13/19 06:00 Pulse Rate 78 06/13/19 06:00 Respiratory Rate 20 06/13/19 06:00 Blood Pressure 139/88 06/13/19 06:00 O2 Sat by Pulse Oximetry (%) 99 06/12/19 21:00 Constitutional: Yes: No Distress, Calm Cardiovascular: Yes: S1, S2 Respiratory: Yes: Regular, CTA Bilaterally Gastrointestinal: Yes: Normal Bowel Sounds, Soft Musculoskeletal: Yes: WNL Extremities: Yes: WNL Neurological: Yes: Alert, Oriented Psychiatric: Yes: Alert, Oriented Labs: CBC, BMP 06/13/19 06:45 06/13/19 06:45 INR, PTT INR 1.78 (0.83-1.09) H 06/11/19 13:15 Assessment/Plan Problem List - Problems (1) Sepsis Code(s): A41.9 - SEPSIS, UNSPECIFIED ORGANISM (2) Pyelonephritis of right kidney Code(s): N12 - TUBULO-INTERSTITIAL NEPHRITIS, NOT SPCF ACUTE OR CHRONIC (3) Pyelonephritis of left kidney Code(s): N12 - TUBULO-INTERSTITIAL NEPHRITIS, NOT SPCF ACUTE OR CHRONIC (4) Functional quadriplegia Code(s): R53.2 - FUNCTIONAL QUADRIPLEGIA plan continue abx monitor fevers rest as per the team cx results noted
[2019-06-13] MEDS ORDERED: PT OWN MED DRAWER 7, Y5N ONE ×3 (10:26→19:15)
[2019-06-13] MEDS: BACLOFEN 10 MG TABLET (FP) PO SCH ×2 (10:53→21:09)
[2019-06-13] MEDS: PANTOPRAZOLE 20 MG TABLET (FP) PO SCH (10:53)
[2019-06-13] MEDS: SOLIFENACIN SUCCINATE 5 MG TAB PO SCH (10:54)
[2019-06-13] MEDS: LACTOBACILLUS ACIDOPHILUS 1 TABLET PO SCH (10:55)
[2019-06-13] MEDS: CALCIUM (OYSTER SHELL) 500 MG TABLET (FP) PO SCH (10:55)
[2019-06-13] MEDS: DULoxetine HCL 30 MG CAPSULE.DR PO SCH (10:55)
[2019-06-13] MEDS: BISACODYL 10 MG SUPP.RECT RC SCH (10:56)
[2019-06-13] MEDS: TIZANIDINE HCL 4 MG TABLET PO SCH ×2 (10:57→21:09)
[2019-06-13] MEDS: MIDODRINE HCL 2.5 MG TABLET PO SCH ×2 (10:57→17:23)
[2019-06-13] MEDS: SODIUM CHLORIDE 1,000 ML IV SCH (10:59)
[2019-06-13] MEDS: LORATADINE 10 MG TABLET PO SCH (10:59)
[2019-06-13] MEDS: ONDANSETRON 4 MG/2 ML VIAL IVPUSH PRN ×2 (11:45→20:31)
[2019-06-13] MEDS: ACETAMINOPHEN 1000 MG/100 ML VIAL (NON FORMULARY) IVPB PRN (11:46)
[2019-06-13] MEDS: POLYETHYLENE GLYCOL 3350 119 GM BTL PO SCH (12:29)
[2019-06-13] MEDS: valACYclovir HCL 500 MG TABLET (FP) PO SCH ×2 (13:41→21:09)
--- NOTE | 2019-06-13 15:25 | PN ---
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 He self catheterizes approximately 7 times per day and uses sterile technique per patient. He self catherizes, but his aide also assists him. He presents to the ED 06/11/19 with c/o of a UTI for approximately one week with subjective fevers of 101F-105F per patient. He reports one week of foul smelling urine with dark sediments and some pus in the urine. He feels weak and dehydrated despite consuming a large amount of water at home. He was prescribed Augmentin from his urologist at another facility and was found to have ecoli in his urine. He took the antibiotics, however, his symptoms worsened overnight which prompted an ED visit. On exam patient is awake, alert. Overnight he was febrile. imaging: abd/pelvis ct scan with contrast 06/11/2019: heterogenous enhancement of both kidneys, right greater than the left suggestive of bilateral pyelonephritis, right greater than the left. - Current Medication List Current Medications: Active Medications Acetaminophen (Ofirmev Injection -) 1,000 mg IVPB Q6H PRN PRN Reason: FEVER Last Admin: 06/13/19 11:46 Dose: 1,000 mg Baclofen (Lioresal -) 20 mg PO BID [facility] Last Admin: 06/13/19 10:53 Dose: 20 mg Bisacodyl (Dulcolax Suppository -) 10 mg RC DAILY [facility] Last Admin: 06/13/19 10:56 Dose: 10 mg Calcium Carbonate (Os-Cody 500mg -) 500 mg PO DAILY [facility] Last Admin: 06/13/19 10:55 Dose: 500 mg Duloxetine HCl (Cymbalta -) 60 mg PO DAILY [facility] Last Admin: 06/13/19 10:55 Dose: 60 mg Heparin Sodium (Porcine) (Heparin -) 5,000 unit SQ TID [facility] Last Admin: 06/13/19 06:34 Dose: 5,000 unit Sodium Chloride (Normal Saline -) 1,000 mls @ 100 mls/hr IV ASDIR [facility] Last Admin: 06/13/19 10:59 Dose: 100 mls/hr Piperacillin Sod/Tazobactam (Sod 3.375 gm/ Dextrose) 50 mls @ 100 mls/hr IVPB Q8H-IV [facility]; Protocol Last Admin: 06/13/19 10:58 Dose: 100 mls/hr Lactobacillus Acidophilus (Bacid -) 1 tab PO DAILY [facility] Last Admin: 06/13/19 10:55 Dose: 1 tab Loratadine (Claritin -) 10 mg PO DAILY [facility] Last Admin: 06/13/19 10:59 Dose: Not Given Midodrine (Proamatine -) 2.5 mg PO BID-MID [facility] Last Admin: 06/13/19 10:57 Dose: Not Given Non-Formulary Medication (Mirabegron [Myrbetriq]) 50 mg PO DAILY [facility] Non-Formulary Medication (Methylcellulose [Fiber]) 500 mg PO DAILY [facility] Ondansetron HCl (Zofran Injection) 4 mg IVPUSH Q6H PRN PRN Reason: NAUSEA AND/OR VOMITING Last Admin: 06/13/19 11:45 Dose: 4 mg Oxycodone HCl (Roxicodone -) 5 mg PO BID PRN PRN Reason: PAIN LEVEL 7 - 10 Last Admin: 06/12/19 21:59 Dose: 5 mg Pantoprazole Sodium (Protonix -) 20 mg PO DAILY [facility] Last Admin: 06/13/19 10:53 Dose: 20 mg Polyethylene Glycol (Miralax (For Daily Use) -) 17 gm PO DAILY [facility] Last Admin: 06/13/19 12:29 Dose: 17 gm Solifenacin (Vesicare -) 10 mg PO DAILY [facility] Last Admin: 06/13/19 10:54 Dose: 10 mg Tizanidine HCl (Tizanidine Hcl) 4 mg PO BID [facility] Last Admin: 06/13/19 10:57 Dose: 4 mg Valacyclovir HCl (Valtrex -) 500 mg PO BID [facility] Last Admin: 06/13/19 13:41 Dose: 500 mg - Objective Vital Signs: Vital Signs Temperature 100.6 F H 06/13/19 10:00 Pulse Rate 92 H 06/13/19 10:00 Respiratory Rate 18 06/13/19 10:00 Blood Pressure 152/96 06/13/19 10:00 O2 Sat by Pulse Oximetry (%) 99 06/12/19 21:00 Constitutional: Yes: Well Nourished, No Distress, Calm Eyes: Yes: WNL HENT: Yes: WNL, Atraumatic Neck: Yes: WNL Cardiovascular: Yes: WNL, Regular Rate and Rhythm Respiratory: Yes: WNL, Regular, CTA Bilaterally Gastrointestinal: Yes: WNL, Soft ...Rectal Exam: Yes: Deferred Edema: No Integumentary: Yes: WNL Wound/Incision: Yes: Clean/Dry Neurological: Yes: Alert, Oriented Labs: CBC, BMP 06/13/19 06:45 06/13/19 06:45 INR, PTT INR 1.78 (0.83-1.09) H 06/11/19 13:15 Problem List - Problems (1) Sepsis Assessment/Plan: on Zosyn (day #3). Urine and blood cultures with no growth. remains febrile with tmax 101.F tylenol IV for fevers and pain ID and urology consulted and following Code(s): A41.9 - SEPSIS, UNSPECIFIED ORGANISM (2) Pyelonephritis of right kidney Assessment/Plan: bilateral heterogenous enhancement of both kidneys per ct scan, right worse than left. consistent with pyelenephritis. Code(s): N12 - TUBULO-INTERSTITIAL NEPHRITIS, NOT SPCF ACUTE OR CHRONIC (3) Pyelonephritis of left kidney Assessment/Plan: bilateral heterogenous enhancement of both kidneys per ct scan, right worse than left. consistent with pyelenephritis. Code(s): N12 - TUBULO-INTERSTITIAL NEPHRITIS, NOT SPCF ACUTE OR CHRONIC (4) Functional quadriplegia Assessment/Plan: bed bound, turn and position q 2 maintain bony prominences without skin breakdown Code(s): R53.2 - FUNCTIONAL QUADRIPLEGIA (5) Prophylactic measure Assessment/Plan: fen: ns @ 100c/hr monitor electrolytes regular diet prophy heparin tid bacid full code Code(s): Z29.9 - ENCOUNTER FOR PROPHYLACTIC MEASURES, UNSPECIFIED Visit type - Emergency Visit Emergency Visit: Yes ED Registration Date: 06/11/19 Care time: The patient presented to the Emergency Department on the above date and was hospitalized for further evaluation of their emergent condition. - New Patient This patient is new to me today: No - Critical Care Critical Care patient: No - Discharge Referral Referred to [facility] Med P.C.: No
[2019-06-13] MEDS ORDERED: SODIUM PHOSPHATE/NA BIPHOS 133 ML ENEMA PR ONE (22:00)
[2019-06-14] MEDS: SODIUM CHLORIDE 1,000 ML IV SCH ×2 (00:06→11:02)
[2019-06-14] MEDS ORDERED: DEXTROSE 5%-WATER - 50 ML IVPB ONE ×3 (01:11→17:02)
[2019-06-14] MEDS ORDERED: PIPERACILLIN/TAZOBACTAM 3.375 GM VIAL IVPB ONE ×3 (01:11→17:02)
[2019-06-14] MEDS: PIPERACILLIN/TAZOB 3.375 GM 3.375 GM in DEXTROSE 5%-WATER - 50 ML IVPB SCH ×3 (02:07→17:17)
[2019-06-14] MEDS: HEPARIN NA (PORCINE) 5,000 UNITS/ML 1ML VIAL SQ SCH ×3 (06:02→22:55)
[2019-06-14 09:01] LABS: BASO % 0.6 % (0-2.0); EOS % 4.1 % (0-4.5); HEMATOCRIT 36.1 % (35.4-49); HEMOGLOBIN 12.3 GM/dL (11.7-16.9); MCH 31.1 pg (25.7-33.7); MCHC 34.1 g/dl (32.0-35.9); MEAN PLT VOLUME 9.6 fl (7.5-11.1); NEUT % 68.3 % (42.8-82.8); PLATELET COUNT 229 K/MM3 (134-434); RBC 3.97 M/mm3 (4.00-5.60); RDW 13.5 % (11.9-15.9); WHITE BLOOD COUNT 6.7 K/mm3 (4.0-10.0)
[2019-06-14 09:33] LABS: ALBUMIN 2.6 g/dl (3.4-5.0); BLOOD UREA NITROGEN 4.7 mg/dL (7-18); CALCIUM 8.2 mg/dL (8.5-10.1); CREATININE 0.7 mg/dL (0.55-1.3); POTASSIUM 3.9 mmol/L (3.5-5.1); TOT PROT 5.8 g/dl (6.4-8.2)
--- NOTE | 2019-06-14 10:17 | PN ---
Progress Note, Physician Chief Complaint: c/o of constipation History of Present Illness: Patient is a 23 year old male with a significant past medical history of C4-C5 spinal cord damage (has implanted baclophen pump-left side of abdomen which is refilled q 3 months at [facility]), bilateral lower extremity paraplegia and automonic dysreflexia. He self catheterizes approximately 7 times per day and uses sterile technique per patient. He self catherizes, but his aide also assists him. He presents to the ED 06/11/19 with c/o of a UTI for approximately one week with subjective fevers of 101F-105F per patient. He reports one week of foul smelling urine with dark sediments and some pus in the urine. He feels weak and dehydrated despite consuming a large amount of water at home. He was prescribed Augmentin from his urologist at another facility and was found to have ecoli in his urine. He took the antibiotics, however, his symptoms worsened overnight which prompted an ED visit. On exam patient is awake, alert. Overnight he was febrile. imaging: abd/pelvis ct scan with contrast 06/11/2019: heterogenous enhancement of both kidneys, right greater than the left suggestive of bilateral pyelonephritis, right greater than the left. - Current Medication List Current Medications: Active Medications Acetaminophen (Ofirmev Injection -) 1,000 mg IVPB Q6H PRN PRN Reason: FEVER Last Admin: 06/13/19 11:46 Dose: 1,000 mg Baclofen (Lioresal -) 20 mg PO BID [facility] Last Admin: 06/13/19 21:09 Dose: 20 mg Bisacodyl (Dulcolax Suppository -) 10 mg RC DAILY [facility] Last Admin: 06/13/19 10:56 Dose: 10 mg Calcium Carbonate (Os-Cody 500mg -) 500 mg PO DAILY [facility] Last Admin: 06/13/19 10:55 Dose: 500 mg Duloxetine HCl (Cymbalta -) 60 mg PO DAILY [facility] Last Admin: 06/13/19 10:55 Dose: 60 mg Heparin Sodium (Porcine) (Heparin -) 5,000 unit SQ TID [facility] Last Admin: 06/14/19 06:02 Dose: 5,000 unit Sodium Chloride (Normal Saline -) 1,000 mls @ 100 mls/hr IV ASDIR [facility] Last Admin: 06/14/19 00:06 Dose: 100 mls/hr Piperacillin Sod/Tazobactam (Sod 3.375 gm/ Dextrose) 50 mls @ 100 mls/hr IVPB Q8H-IV [facility]; Protocol Last Admin: 06/14/19 02:07 Dose: 100 mls/hr Lactobacillus Acidophilus (Bacid -) 1 tab PO DAILY [facility] Last Admin: 06/13/19 10:55 Dose: 1 tab Loratadine (Claritin -) 10 mg PO DAILY [facility] Last Admin: 06/13/19 10:59 Dose: Not Given Midodrine (Proamatine -) 2.5 mg PO BID-MID [facility] Last Admin: 06/13/19 17:23 Dose: Not Given Non-Formulary Medication (Mirabegron [Myrbetriq]) 50 mg PO DAILY [facility] Non-Formulary Medication (Methylcellulose [Fiber]) 500 mg PO DAILY [facility] Ondansetron HCl (Zofran Injection) 4 mg IVPUSH Q6H PRN PRN Reason: NAUSEA AND/OR VOMITING Last Admin: 06/13/19 20:31 Dose: 4 mg Oxycodone HCl (Roxicodone -) 5 mg PO BID PRN PRN Reason: PAIN LEVEL 7 - 10 Last Admin: 06/12/19 21:59 Dose: 5 mg Pantoprazole Sodium (Protonix -) 20 mg PO DAILY [facility] Last Admin: 06/13/19 10:53 Dose: 20 mg Polyethylene Glycol (Miralax (For Daily Use) -) 17 gm PO DAILY [facility] Last Admin: 06/13/19 12:29 Dose: 17 gm Solifenacin (Vesicare -) 10 mg PO DAILY [facility] Last Admin: 06/13/19 10:54 Dose: 10 mg Tizanidine HCl (Tizanidine Hcl) 4 mg PO BID [facility] Last Admin: 06/13/19 21:09 Dose: 4 mg Valacyclovir HCl (Valtrex -) 500 mg PO BID [facility] Last Admin: 06/13/19 21:09 Dose: 500 mg - Objective Vital Signs: Vital Signs Temperature 99.1 F 06/14/19 07:54 Pulse Rate 75 06/14/19 07:54 Respiratory Rate 18 06/14/19 07:54 Blood Pressure 148/77 06/14/19 07:54 O2 Sat by Pulse Oximetry (%) 99 06/13/19 21:00 Constitutional: Yes: Well Nourished, No Distress, Calm Eyes: Yes: WNL, Conjunctiva Clear HENT: Yes: Atraumatic Neck: Yes: Supple Cardiovascular: Yes: Regular Rate and Rhythm Respiratory: Yes: Regular Gastrointestinal: Yes: Normal Bowel Sounds ...Rectal Exam: Yes: Deferred Labs: CBC, BMP 06/14/19 08:07 06/14/19 08:07 INR, PTT INR 1.78 (0.83-1.09) H 06/11/19 13:15 Problem List - Problems (1) Sepsis Assessment/Plan: on Zosyn (day #4). Urine and blood cultures with no growth. remains febrile with tmax 101.F tylenol IV for fevers and pain ID and urology consulted and following Code(s): A41.9 - SEPSIS, UNSPECIFIED ORGANISM (2) Pyelonephritis of right kidney Assessment/Plan: bilateral heterogenous enhancement of both kidneys per ct scan, right worse than left. consistent with pyelenephritis. Code(s): N12 - TUBULO-INTERSTITIAL NEPHRITIS, NOT SPCF ACUTE OR CHRONIC (3) Pyelonephritis of left kidney Assessment/Plan: bilateral heterogenous enhancement of both kidneys per ct scan, right worse than left. consistent with pyelenephritis. Code(s): N12 - TUBULO-INTERSTITIAL NEPHRITIS, NOT SPCF ACUTE OR CHRONIC (4) Functional quadriplegia Assessment/Plan: bed bound, turn and position q 2 maintain bony prominences without skin breakdown Code(s): R53.2 - FUNCTIONAL QUADRIPLEGIA (5) Prophylactic measure Assessment/Plan: fen: ns @ 50cc/hr monitor electrolytes regular diet prophy heparin tid bacid full code Code(s): Z29.9 - ENCOUNTER FOR PROPHYLACTIC MEASURES, UNSPECIFIED Visit type - Emergency Visit Emergency Visit: Yes ED Registration Date: 06/11/19 Care time: The patient presented to the Emergency Department on the above date and was hospitalized for further evaluation of their emergent condition. - New Patient This patient is new to me today: No - Critical Care Critical Care patient: No - Discharge Referral Referred to [facility] No
[2019-06-14] MEDS: LORATADINE 10 MG TABLET PO SCH (10:20)
[2019-06-14] MEDS: BISACODYL 10 MG SUPP.RECT RC SCH (10:20)
[2019-06-14] MEDS: LACTOBACILLUS ACIDOPHILUS 1 TABLET PO SCH (10:20)
[2019-06-14] MEDS: DULoxetine HCL 30 MG CAPSULE.DR PO SCH (10:20)
[2019-06-14] MEDS: CALCIUM (OYSTER SHELL) 500 MG TABLET (FP) PO SCH (10:21)
[2019-06-14] MEDS: POLYETHYLENE GLYCOL 3350 119 GM BTL PO SCH (10:21)
[2019-06-14] MEDS: BACLOFEN 10 MG TABLET (FP) PO SCH ×2 (10:21→22:55)
[2019-06-14] MEDS: PANTOPRAZOLE 20 MG TABLET (FP) PO SCH (10:22)
[2019-06-14] MEDS: valACYclovir HCL 500 MG TABLET (FP) PO SCH ×2 (10:22→22:55)
[2019-06-14] MEDS: TIZANIDINE HCL 4 MG TABLET PO SCH ×2 (10:22→22:54)
[2019-06-14] MEDS: MIDODRINE HCL 2.5 MG TABLET PO SCH ×2 (10:22→18:32)
[2019-06-14] MEDS: SOLIFENACIN SUCCINATE 5 MG TAB PO SCH (10:23)
[2019-06-14] MEDS: oxyCODONE HCL 5 MG TABLET PO PRN (10:50)
--- NOTE | 2019-06-14 10:53 | PN ---
Progress Note, Physician History of Present Illness: stable c/o headache - Current Medication List Current Medications: Active Medications Acetaminophen (Ofirmev Injection -) 1,000 mg IVPB Q6H PRN PRN Reason: FEVER Last Admin: 06/13/19 11:46 Dose: 1,000 mg Baclofen (Lioresal -) 20 mg PO BID [facility] Last Admin: 06/13/19 21:09 Dose: 20 mg Bisacodyl (Dulcolax Suppository -) 10 mg RC DAILY [facility] Last Admin: 06/13/19 10:56 Dose: 10 mg Calcium Carbonate (Os-Cody 500mg -) 500 mg PO DAILY [facility] Last Admin: 06/13/19 10:55 Dose: 500 mg Duloxetine HCl (Cymbalta -) 60 mg PO DAILY [facility] Last Admin: 06/13/19 10:55 Dose: 60 mg Heparin Sodium (Porcine) (Heparin -) 5,000 unit SQ TID [facility] Last Admin: 06/14/19 06:02 Dose: 5,000 unit Sodium Chloride (Normal Saline -) 1,000 mls @ 100 mls/hr IV ASDIR [facility] Last Admin: 06/14/19 00:06 Dose: 100 mls/hr Piperacillin Sod/Tazobactam (Sod 3.375 gm/ Dextrose) 50 mls @ 100 mls/hr IVPB Q8H-IV [facility]; Protocol Last Admin: 06/14/19 02:07 Dose: 100 mls/hr Lactobacillus Acidophilus (Bacid -) 1 tab PO DAILY [facility] Last Admin: 06/13/19 10:55 Dose: 1 tab Loratadine (Claritin -) 10 mg PO DAILY [facility] Last Admin: 06/13/19 10:59 Dose: Not Given Midodrine (Proamatine -) 2.5 mg PO BID-MID [facility] Last Admin: 06/13/19 17:23 Dose: Not Given Non-Formulary Medication (Mirabegron [Myrbetriq]) 50 mg PO DAILY [facility] Non-Formulary Medication (Methylcellulose [Fiber]) 500 mg PO DAILY [facility] Ondansetron HCl (Zofran Injection) 4 mg IVPUSH Q6H PRN PRN Reason: NAUSEA AND/OR VOMITING Last Admin: 06/13/19 20:31 Dose: 4 mg Oxycodone HCl (Roxicodone -) 5 mg PO BID PRN PRN Reason: PAIN LEVEL 7 - 10 Last Admin: 06/12/19 21:59 Dose: 5 mg Pantoprazole Sodium (Protonix -) 20 mg PO DAILY [facility] Last Admin: 06/13/19 10:53 Dose: 20 mg Polyethylene Glycol (Miralax (For Daily Use) -) 17 gm PO DAILY [facility] Last Admin: 06/13/19 12:29 Dose: 17 gm Solifenacin (Vesicare -) 10 mg PO DAILY [facility] Last Admin: 06/13/19 10:54 Dose: 10 mg Tizanidine HCl (Tizanidine Hcl) 4 mg PO BID [facility] Last Admin: 06/13/19 21:09 Dose: 4 mg Valacyclovir HCl (Valtrex -) 500 mg PO BID [facility] Last Admin: 06/13/19 21:09 Dose: 500 mg - Objective Vital Signs: Vital Signs Temperature 99.1 F 06/14/19 07:54 Pulse Rate 75 06/14/19 07:54 Respiratory Rate 18 06/14/19 07:54 Blood Pressure 148/77 06/14/19 07:54 O2 Sat by Pulse Oximetry (%) 99 06/13/19 21:00 Constitutional: Yes: No Distress, Calm Gastrointestinal: Yes: Normal Bowel Sounds, Soft Musculoskeletal: Yes: WNL Extremities: Yes: WNL Neurological: Yes: Alert, Oriented Psychiatric: Yes: Alert, Oriented Labs: CBC, BMP 06/14/19 08:07 06/14/19 08:07 INR, PTT INR 1.78 (0.83-1.09) H 06/11/19 13:15 Assessment/Plan Problem List - Problems (1) Sepsis Code(s): A41.9 - SEPSIS, UNSPECIFIED ORGANISM (2) Pyelonephritis of right kidney Code(s): N12 - TUBULO-INTERSTITIAL NEPHRITIS, NOT SPCF ACUTE OR CHRONIC (3) Pyelonephritis of left kidney Code(s): N12 - TUBULO-INTERSTITIAL NEPHRITIS, NOT SPCF ACUTE OR CHRONIC (4) Functional quadriplegia Code(s): R53.2 - FUNCTIONAL QUADRIPLEGIA plan continue abx improving will d/w the team once stable will switch to oral
[2019-06-14] MEDS ORDERED: SODIUM CHLORIDE 1,000 ML IV SCH (11:07)
[2019-06-14] MEDS: ONDANSETRON 4 MG/2 ML VIAL IVPUSH PRN ×2 (17:27→22:33)
[2019-06-14] MEDS ORDERED: MAG HYDROX/AL HYDROX/SIMETH -MYLANTA- ORAL SUSPENSION PO ONE (22:21)
[2019-06-14] MEDS ORDERED: MAG HYDROX/AL HYDROX/SIMETH 30 ML UNIT-DOSE CUP PO ONE (23:00)
[2019-06-15] MEDS ORDERED: PIPERACILLIN/TAZOBACTAM 3.375 GM VIAL IVPB ONE ×2 (01:08→10:10)
[2019-06-15] MEDS ORDERED: DEXTROSE 5%-WATER - 50 ML IVPB ONE ×2 (01:08→10:10)
[2019-06-15] MEDS: PIPERACILLIN/TAZOB 3.375 GM 3.375 GM in DEXTROSE 5%-WATER - 50 ML IVPB SCH ×3 (01:53→17:37)
[2019-06-15] MEDS: HEPARIN NA (PORCINE) 5,000 UNITS/ML 1ML VIAL SQ SCH ×2 (05:28→15:34)
[2019-06-15 07:08] LABS: ALBUMIN 2.6 g/dl (3.4-5.0); BILIRUBIN,TOTAL 0.7 mg/dL (0.2-1); BLOOD UREA NITROGEN 3.6 mg/dL (7-18); CALCIUM 8.5 mg/dL (8.5-10.1); CREATININE 0.8 mg/dL (0.55-1.3); POTASSIUM 3.7 mmol/L (3.5-5.1); TOT PROT 5.9 g/dl (6.4-8.2)
[2019-06-15 07:15] LABS: BASO % 0.5 % (0-2.0); EOS % 4.6 % (0-4.5); HEMATOCRIT 36.8 % (35.4-49); HEMOGLOBIN 12.7 GM/dL (11.7-16.9); LYMPH % 22.3 % (8-40); MCH 31.3 pg (25.7-33.7); MCHC 34.5 g/dl (32.0-35.9); MEAN CELL VOLUME 90.6 fl (80-96); MEAN PLT VOLUME 8.9 fl (7.5-11.1); MONO % 11.8 % (3.8-10.2); NEUT % 60.8 % (42.8-82.8); PLATELET COUNT 277 K/MM3 (134-434); RBC 4.06 M/mm3 (4.00-5.60); RDW 13.2 % (11.9-15.9); WHITE BLOOD COUNT 6.2 K/mm3 (4.0-10.0)
[2019-06-15] MEDS: DULoxetine HCL 30 MG CAPSULE.DR PO SCH (10:34)
[2019-06-15] MEDS: LACTOBACILLUS ACIDOPHILUS 1 TABLET PO SCH (10:35)
[2019-06-15] MEDS: LORATADINE 10 MG TABLET PO SCH (10:35)
[2019-06-15] MEDS: SOLIFENACIN SUCCINATE 5 MG TAB PO SCH (10:35)
[2019-06-15] MEDS: BACLOFEN 10 MG TABLET (FP) PO SCH (10:35)
[2019-06-15] MEDS: CALCIUM (OYSTER SHELL) 500 MG TABLET (FP) PO SCH (10:35)
[2019-06-15] MEDS: PANTOPRAZOLE 20 MG TABLET (FP) PO SCH (10:35)
[2019-06-15] MEDS: POLYETHYLENE GLYCOL 3350 119 GM BTL PO SCH (10:36)
[2019-06-15] MEDS: MIDODRINE HCL 2.5 MG TABLET PO SCH ×2 (10:36→19:00)
[2019-06-15] MEDS: valACYclovir HCL 500 MG TABLET (FP) PO SCH (10:37)
[2019-06-15] MEDS: TIZANIDINE HCL 4 MG TABLET PO SCH (10:37)
[2019-06-15] MEDS: ONDANSETRON 4 MG/2 ML VIAL IVPUSH PRN ×2 (10:57→22:12)
--- NOTE | 2019-06-15 12:42 | DS ---
Physical Exam: SUBJECTIVE: Patient seen and examined at the bedside. he denies pain, denies malaise. for discharge home today. OBJECTIVE: clear yellow urine, d/c home on antibiotics (levaquin 500mg x 7 days) Vital Signs Period Temp Pulse Resp BP Sys/White Pulse Ox Last 24 Hr 98.1 F-98.3 F 61-78 20-20 139-149/81-98 PHYSICAL EXAM GENERAL: The patient is awake, alert, and fully oriented, in no acute distress. HEAD: Normal with no signs of trauma. EYES: PERRL, extraocular movements intact, sclera anicteric, conjunctiva clear. ENT: Ears normal, nares patent, oropharynx clear without exudates, moist mucous membranes. NECK: old trach site, c/d/i LUNGS: Breath sounds equal, clear to auscultation bilaterally HEART: Regular rate and rhythm ABDOMEN: Soft, nontender, nondistended, normoactive bowel sounds, no guarding EXTREMITIES: functional quadraplegia. left arm weakness. bed bound/wheelchair bound NEUROLOGICAL: Normal speech, bed bound - has motorized wheelchair PSYCH: Normal mood, normal affect. SKIN: Warm, dry, normal turgor, no rashes or lesions noted. LABS Laboratory Results - last 24 hr 06/15/19 06/15/19 06:18 06:18 WBC 6.2 RBC 4.06 Hgb 12.7 Hct 36.8 MCV 90.6 MCH 31.3 MCHC 34.5 RDW 13.2 Plt Count 277 D MPV 8.9 Absolute Neuts (auto) 3.8 Neutrophils % 60.8 Lymphocytes % 22.3 D Monocytes % 11.8 H Eosinophils % 4.6 H Basophils % 0.5 Nucleated RBC % 0 Sodium 144 Potassium 3.7 Chloride 108 H Carbon Dioxide 29 Anion Gap 7 L BUN 3.6 L Creatinine 0.8 Est GFR (CKD-EPI)AfAm 144.91 Est GFR (CKD-EPI)NonAf 125.03 Random Glucose 104 Calcium 8.5 Magnesium 2.0 Total Bilirubin 0.7 AST 27 ALT 48 Alkaline Phosphatase 81 Total Protein 5.9 L Albumin 2.6 L HOSPITAL COURSE: Date of Admission:06/11/19 Date of Discharge: 06/15/19 Patient is a 23 year old male with a significant past medical history of C4-C5 spinal cord damage (has implanted baclophen pump-left side of abdomen which is refilled q 3 months at [facility]), bilateral lower extremity paraplegia and automonic dysreflexia. He self catheterizes approximately 7 times per day and uses sterile technique per patient. He self catheterizes, but his aide also assists him. He presents to the ED 06/11/19 with c/o of a UTI for approximately one week with subjective fevers of 101F-105F per patient. He reported one week of foul smelling urine with dark sediments and some pus in the urine. He felt weak and dehydrated despite consuming a large amount of water at home. He was prescribed Augmentin from his urologist at another facility and was found to have ecoli in his urine. He took the antibiotics, however, his symptoms worsened which prompted an ED visit. Patient admitted on 06/11/2019 for bilateral pyelonephritis. He was treated with Zosyn since admission and was followed by urology and ID. He was transitioned to Levaquin 500mg once per day for 7 days. He agrees to follow up with his urologist as an outpatient. Minutes to complete discharge: 60 Discharge Summary Reason For Visit: PHYLONEPHRITIS,SEPSIS Current Active Problems Functional quadriplegia (Acute) Prophylactic measure (Acute) Pyelonephritis of left kidney (Acute) Pyelonephritis of right kidney (Acute) Sepsis (Acute) Systemic inflammatory response syndrome (SIRS) (Acute) Condition: Improved - Instructions Diet, Activity, Other Instructions: Mr Austin: You were admitted for pyelonephritis (kidney infection). You were treated with IV antibiotics and IV hydration. You have improved on the IV antibiotics and we will be sending you home on oral antibiotics. What is pyelonephritis? Pyelonephritis is inflammation of the kidney due to bacterial infection. The symptoms are fever, frequent urination, back pain and groin pain. When you straight cath please use sterile technique as well as do not reuse any catheters. Please follow up with your urologist by making an appointment for follow up. You should follow up with your PCP also. Continue all your home medications. We will be sending you home on the following antibiotics: Levaquin 500mg take ONCE per day fro 7 days. You can start it tomorrow 2018 through 06/22/2019. For your stomach protection, we will be sending you home on a Probiotic to help you tolerate the antibiotics. Thank you for allowing us to care for you. Referrals: Edmund York MD [Staff Physician] - Disposition: HOME - Home Medications Comprehensive Discharge Medication List: Ambulatory Orders Baclofen [Lioresal Intrathecal] 20 mcg IT BID 02/28/19 Calcium Carbonate [Calcium] 500 mg PO DAILY 02/28/19 Cetirizine HCl [Zyrtec -] 10 mg PO DAILY 02/28/19 Duloxetine HCl 60 mg PO DAILY 02/28/19 Fludrocortisone Acetate 0.1 mg PO AM 02/28/19 Methylcellulose [Fiber] 500 mg PO DAILY 02/28/19 Midodrine HCl 2.5 mg PO BID 02/28/19 Mirabegron [Myrbetriq] 50 mg PO HS 02/28/19 Omeprazole 20 mg PO DAILY 02/28/19 Solifenacin Succinate [Vesicare -] 10 mg PO DAILY 02/28/19 Bisacodyl [Magic Bullet] 10 mg DE DAILY PRN 06/11/19 Miralax 119 gm Btl - 17 grams PO DAILY [facility] 2 06/11/19 Valtrex - 06/11/19 Baclofen 20 mg PO BID 06/12/19 Tizanidine HCl 4 mg PO BID 06/12/19 Lactobacillus Acidophilus [Bacid -] 1 tab PO DAILY #30 tab 06/15/19 Levofloxacin [Levaquin] 500 mg PO DAILY #7 tablet 06/15/19 Problem List - Problems (1) Sepsis Assessment/Plan: on Zosyn (day #5). discontinue zosyn and will be transitioned to levaquin 500mg daily x 7 days per ID recommendations. Urine and blood cultures with no growth. afebrile x 48 hours urology follow up as an outpatient. Code(s): A41.9 - SEPSIS, UNSPECIFIED ORGANISM Qualifiers: Sepsis type: sepsis due to unspecified organism Sepsis acute organ dysfunction status: unspecified Qualified Code(s): A41.9 - Sepsis, unspecified organism (2) Pyelonephritis of right kidney Assessment/Plan: treated with zosyn, transitioned to levaquin. will need outpatient follow up with his urologist. Code(s): N12 - TUBULO-INTERSTITIAL NEPHRITIS, NOT SPCF ACUTE OR CHRONIC (3) Pyelonephritis of left kidney Assessment/Plan: treated with zosyn, transitioned to levaquin. will need outpatient follow up with his urologist. Code(s): N12 - TUBULO-INTERSTITIAL NEPHRITIS, NOT SPCF ACUTE OR CHRONIC (4) Functional quadriplegia Assessment/Plan: bed bound, turn and position q 2 maintain bony prominences without skin breakdown Code(s): R53.2 - FUNCTIONAL QUADRIPLEGIA (5) Prophylactic measure Assessment/Plan: Code(s): Z29.9 - ENCOUNTER FOR PROPHYLACTIC MEASURES, UNSPECIFIED This patient is new to me today: Yes Date on this admission: 06/15/19 Emergency Visit: No Critical Care patient: No - Discharge Referral Referred to [facility] No
[2019-06-15] MEDS: BISACODYL 10 MG SUPP.RECT RC SCH (12:47)
--- NOTE | 2019-06-15 12:50 | PN ---
Progress Note, Physician History of Present Illness: stable doing well - Current Medication List Current Medications: Active Medications Acetaminophen (Ofirmev Injection -) 1,000 mg IVPB Q6H PRN PRN Reason: FEVER Last Admin: 06/13/19 11:46 Dose: 1,000 mg Baclofen (Lioresal -) 20 mg PO BID [facility] Last Admin: 06/15/19 10:35 Dose: 20 mg Bisacodyl (Dulcolax Suppository -) 10 mg RC DAILY [facility] Last Admin: 06/15/19 12:47 Dose: Not Given Calcium Carbonate (Os-Cody 500mg -) 500 mg PO DAILY [facility] Last Admin: 06/15/19 10:35 Dose: 500 mg Duloxetine HCl (Cymbalta -) 60 mg PO DAILY [facility] Last Admin: 06/15/19 10:34 Dose: 60 mg Heparin Sodium (Porcine) (Heparin -) 5,000 unit SQ TID [facility] Last Admin: 06/15/19 05:28 Dose: 5,000 unit Piperacillin Sod/Tazobactam (Sod 3.375 gm/ Dextrose) 50 mls @ 100 mls/hr IVPB Q8H-IV [facility]; Protocol Last Admin: 06/15/19 10:38 Dose: 100 mls/hr Lactobacillus Acidophilus (Bacid -) 1 tab PO DAILY [facility] Last Admin: 06/15/19 10:35 Dose: 1 tab Loratadine (Claritin -) 10 mg PO DAILY [facility] Last Admin: 06/15/19 10:35 Dose: 10 mg Midodrine (Proamatine -) 2.5 mg PO BID-MID [facility] Last Admin: 06/15/19 10:36 Dose: Not Given Non-Formulary Medication (Mirabegron [Myrbetriq]) 50 mg PO DAILY [facility] Non-Formulary Medication (Methylcellulose [Fiber]) 500 mg PO DAILY [facility] Ondansetron HCl (Zofran Injection) 4 mg IVPUSH Q6H PRN PRN Reason: NAUSEA AND/OR VOMITING Last Admin: 06/15/19 10:57 Dose: 4 mg Oxycodone HCl (Roxicodone -) 5 mg PO BID PRN PRN Reason: PAIN LEVEL 7 - 10 Last Admin: 06/14/19 10:50 Dose: 5 mg Pantoprazole Sodium (Protonix -) 20 mg PO DAILY [facility] Last Admin: 06/15/19 10:35 Dose: 20 mg Polyethylene Glycol (Miralax (For Daily Use) -) 17 gm PO DAILY [facility] Last Admin: 06/15/19 10:36 Dose: 17 gm Solifenacin (Vesicare -) 10 mg PO DAILY [facility] Last Admin: 06/15/19 10:35 Dose: 10 mg Tizanidine HCl (Tizanidine Hcl) 4 mg PO BID [facility] Last Admin: 06/15/19 10:37 Dose: 4 mg Valacyclovir HCl (Valtrex -) 500 mg PO BID [facility] Last Admin: 06/15/19 10:37 Dose: 500 mg - Objective Vital Signs: Vital Signs Temperature 98.1 F 06/15/19 06:00 Pulse Rate 73 06/15/19 06:00 Respiratory Rate 20 06/15/19 06:00 Blood Pressure 139/81 06/15/19 06:00 O2 Sat by Pulse Oximetry (%) 99 06/14/19 09:00 Constitutional: Yes: No Distress, Calm Cardiovascular: Yes: Regular Rate and Rhythm Respiratory: Yes: Regular, CTA Bilaterally Gastrointestinal: Yes: Normal Bowel Sounds, Soft Musculoskeletal: Yes: WNL Extremities: Yes: WNL Neurological: Yes: Alert, Oriented Psychiatric: Yes: Alert, Oriented Labs: CBC, BMP 06/15/19 06:18 06/15/19 06:18 INR, PTT INR 1.78 (0.83-1.09) H 06/11/19 13:15 Assessment/Plan Problem List - Problems (1) Sepsis Code(s): A41.9 - SEPSIS, UNSPECIFIED ORGANISM (2) Pyelonephritis of right kidney Code(s): N12 - TUBULO-INTERSTITIAL NEPHRITIS, NOT SPCF ACUTE OR CHRONIC (3) Pyelonephritis of left kidney Code(s): N12 - TUBULO-INTERSTITIAL NEPHRITIS, NOT SPCF ACUTE OR CHRONIC (4) Functional quadriplegia Code(s): R53.2 - FUNCTIONAL QUADRIPLEGIA plan can change to levaquin for 7 days f/u with urology
[2019-06-15] MEDS ORDERED: PT OWN MED DRAWER 7, Y5N ONE (19:51)
[2019-06-16] MEDS: HEPARIN NA (PORCINE) 5,000 UNITS/ML 1ML VIAL SQ SCH ×2 (00:04→06:17)
[2019-06-16] MEDS: valACYclovir HCL 500 MG TABLET (FP) PO SCH ×2 (00:05→10:14)
[2019-06-16] MEDS: BACLOFEN 10 MG TABLET (FP) PO SCH ×2 (00:05→10:14)
[2019-06-16] MEDS: TIZANIDINE HCL 4 MG TABLET PO SCH ×2 (00:15→10:15)
[2019-06-16] MEDS ORDERED: BISACODYL 10 MG SUPP.RECT PR ONE (00:52)
[2019-06-16] MEDS: PIPERACILLIN/TAZOB 3.375 GM 3.375 GM in DEXTROSE 5%-WATER - 50 ML IVPB SCH (02:55)
[2019-06-16 07:39] VITALS: BP 122/79; PULSE 71; TEMP 98
[2019-06-16 08:49] LABS: BASO % 0.8 % (0-2.0); EOS % 4.8 % (0-4.5); HEMATOCRIT 39.4 % (35.4-49); HEMOGLOBIN 13.6 GM/dL (11.7-16.9); MCH 31.1 pg (25.7-33.7); MCHC 34.5 g/dl (32.0-35.9); MEAN CELL VOLUME 90.1 fl (80-96); MEAN PLT VOLUME 8.3 fl (7.5-11.1); MONO % 9.2 % (3.8-10.2); NEUT % 63.2 % (42.8-82.8); PLATELET COUNT 335 K/MM3 (134-434); RBC 4.38 M/mm3 (4.00-5.60); RDW 13.2 % (11.9-15.9); WHITE BLOOD COUNT 5.9 K/mm3 (4.0-10.0)
[2019-06-16 09:14] LABS: ALBUMIN 2.8 g/dl (3.4-5.0); BILIRUBIN,TOTAL 0.6 mg/dL (0.2-1); BLOOD UREA NITROGEN 5.3 mg/dL (7-18); CALCIUM 8.8 mg/dL (8.5-10.1); CREATININE 0.7 mg/dL (0.55-1.3); MAGNESIUM 2.2 mg/dL (1.8-2.4); POTASSIUM 3.8 mmol/L (3.5-5.1); TOT PROT 6.4 g/dl (6.4-8.2)
[2019-06-16] MEDS ORDERED: PT OWN MED DRAWER 7, Y5N ONE ×2 (10:10→11:10)
[2019-06-16] MEDS: CALCIUM (OYSTER SHELL) 500 MG TABLET (FP) PO SCH (10:13)
[2019-06-16] MEDS: LORATADINE 10 MG TABLET PO SCH (10:14)
[2019-06-16] MEDS: LACTOBACILLUS ACIDOPHILUS 1 TABLET PO SCH (10:14)
[2019-06-16] MEDS: PANTOPRAZOLE 20 MG TABLET (FP) PO SCH (10:14)
[2019-06-16] MEDS: SOLIFENACIN SUCCINATE 5 MG TAB PO SCH (10:14)
[2019-06-16] MEDS: DULoxetine HCL 30 MG CAPSULE.DR PO SCH (10:14)
[2019-06-16] MEDS: POLYETHYLENE GLYCOL 3350 119 GM BTL PO SCH (10:15)
[2019-06-16] MEDS: MIDODRINE HCL 2.5 MG TABLET PO SCH (10:15)
[2019-06-16] MEDS: BISACODYL 10 MG SUPP.RECT RC SCH (10:15)
== END 2019-06-16 11:36 | disposition home or self-care (01) | DRG 872 ==
LOC: JER 11:29 → JERBED 13:31 → J5S 17:45
PROVIDERS: ATTEND Nurse Practitioner Family
DX: A41.9 Sepsis, unspecified organism (principal); N10 Acute pyelonephritis; N31.9 Neuromuscular dysfunction of bladder, unspecified; G90.4 Autonomic dysreflexia; I95.9 Hypotension, unspecified; S14.104S Unspecified injury at C4 level of cervical spinal cord, sequela; S14.105S Unspecified injury at C5 level of cervical spinal cord, sequela
CPT/HCPCS: 36415; 70450-TC; 71045-TC-FY; 74177-TC; 80053; 81003; 82803; 83605; 83735; 84484; 85025; 85610; 85730; 87040; 87086; 93005; 93010; 97161-GP; 99285-25; J0131; J0475; J1644; J7030

== ENCOUNTER 2020-11-07 14:33 | Inpatient (IN) | payer OTHER ==
[2020-11-07 16:51] LABS: EPI CELLS 7 /uL (0-25.1); HYALINE CASTS 6 /uL (0-3.1); PH,URINE 7.5 (5.0-8.0); URINE APPEARANCE CLOUDY; URINE BACTERIA >9,000 /uL (0-1359); URINE BILIRUBIN NEGATIVE (NEGATIVE); URINE COLOR YELLOW; URINE GLUCOSE (UA) NEGATIVE (NEGATIVE); URINE KETONE NEGATIVE (NEGATIVE); URINE LEUK ESTERASE 3+ (NEGATIVE); URINE NITRITE POSITIVE (NEGATIVE); URINE PROTEIN NEGATIVE (NEGATIVE); URINE RBC 7 /uL (0-23.9); URINE WBC 477 /uL (0-25.8)
[2020-11-07] MEDS ORDERED: CEFTRIAXONE 1 GM in DEXTROSE 5%-WATER - 100 ML IVPB ONE (17:17)
[2020-11-07 18:04] LABS: BASO % 0.7 % (0-2.0); EOS % 2.7 % (0-4.5); HEMATOCRIT 42.3 % (35.4-49); HEMOGLOBIN 14.6 GM/dL (11.7-16.9); LYMPH % 29.6 % (8-40); MCH 30.5 pg (25.7-33.7); MCHC 34.4 g/dl (32.0-35.9); MEAN CELL VOLUME 88.7 fl (80-96); MEAN PLT VOLUME 9.2 fl (7.5-11.1); MONO % 7.2 % (3.8-10.2); NEUT % 59.8 % (42.8-82.8); PLATELET COUNT 235 K/MM3 (134-434); RBC 4.77 M/mm3 (4.00-5.60); RDW 13.2 % (11.9-15.9); WHITE BLOOD COUNT 5.9 K/mm3 (4.0-10.0)
[2020-11-07 18:27] LABS: CALCIUM 9.1 mg/dL (8.5-10.1)
[2020-11-07 18:28] LABS: ALBUMIN 3.9 g/dl (3.4-5.0); BLOOD UREA NITROGEN 10.2 mg/dL (7-18)
[2020-11-07 18:31] LABS: CREATININE 0.6 mg/dL (0.55-1.3)
[2020-11-07 18:33] LABS: BILIRUBIN,TOTAL 1.8 mg/dL (0.2-1); TOT PROT 7.2 g/dl (6.4-8.2)
[2020-11-07] MEDS ORDERED: CEFTRIAXONE 1 GM/50 ML BAG ONE (19:20)
[2020-11-07] MEDS ORDERED: PIPERACILLIN/TAZOB 3.375 GM 3.375 GM/50 ML BAG IVPB ONE (22:26)
[2020-11-07] MEDS: PIPERACILLIN/TAZOB 3.375 GM 3.375 GM in DEXTROSE 5%-WATER - 50 ML IVPB SCH (22:47)
[2020-11-08] MEDS ORDERED: ACETAMINOPHEN 325 MG TABLET (FP) PO PRN (01:08)
[2020-11-08] MEDS ORDERED: PIPERACILLIN/TAZOB 3.375 GM 3.375 GM/50 ML BAG IVPB ONE ×3 (04:08→16:08)
[2020-11-08] MEDS: PIPERACILLIN/TAZOB 3.375 GM 3.375 GM in DEXTROSE 5%-WATER - 50 ML IVPB SCH ×3 (04:13→16:11)
[2020-11-08 07:31] LABS: BASO % 0.5 % (0-2.0); EOS % 1.8 % (0-4.5); HEMATOCRIT 40.4 % (35.4-49); HEMOGLOBIN 14.4 GM/dL (11.7-16.9); LYMPH % 26.5 % (8-40); MCH 31.3 pg (25.7-33.7); MCHC 35.5 g/dl (32.0-35.9); MEAN PLT VOLUME 9.4 fl (7.5-11.1); MONO % 10.7 % (3.8-10.2); NEUT % 60.5 % (42.8-82.8); PLATELET COUNT 236 K/MM3 (134-434); RBC 4.59 M/mm3 (4.00-5.60); RDW 12.9 % (11.9-15.9); WHITE BLOOD COUNT 8.1 K/mm3 (4.0-10.0)
[2020-11-08] MEDS ORDERED: FLUTICASONE PROP 0.05% 16 GM NASAL SPRAY NS PRN (07:53)
[2020-11-08 07:58] LABS: ALBUMIN 3.8 g/dl (3.4-5.0); CALCIUM 8.9 mg/dL (8.5-10.1)
[2020-11-08 07:59] LABS: BLOOD UREA NITROGEN 12.2 mg/dL (7-18); MAGNESIUM 1.9 mg/dL (1.8-2.4)
[2020-11-08 08:04] LABS: PHOSPHOROUS 3.8 mg/dL (2.5-4.9)
[2020-11-08] MEDS ORDERED: ACETAMINOPHEN 1000 MG/100 ML BAG IVPB PRN (08:05)
[2020-11-08] MEDS ORDERED: ACETAMINOPHEN 325 MG TABLET (FP) ONE (10:42)
[2020-11-08] MEDS ORDERED: PANTOPRAZOLE 20 MG TABLET PO ONE (10:42)
[2020-11-08] MEDS ORDERED: BISACODYL 10 MG SUPP.RECT ONE (10:42)
[2020-11-08] MEDS ORDERED: ENOXAPARIN NA (PORCINE) 40 MG/0.4 ML DISP.SYRIN SQ ONE (10:42)
[2020-11-08] MEDS: ENOXAPARIN NA (PORCINE) 40 MG/0.4 ML DISP.SYRIN SQ SCH (11:00)
[2020-11-08] MEDS: GABAPENTIN 300 MG CAPSULE PO SCH ×2 (11:00→22:25)
[2020-11-08] MEDS: POLYETHYLENE GLYCOL 3350 119 GM BTL PO SCH (11:00)
[2020-11-08] MEDS: BISACODYL 10 MG SUPP.RECT RC SCH (11:00)
[2020-11-08] MEDS: PANTOPRAZOLE 20 MG TABLET PO SCH (11:00)
[2020-11-08] MEDS ORDERED: PANTOPRAZOLE 20 MG TABLET PO SCH (14:00)
[2020-11-08] MEDS ORDERED: BACLOFEN 10 MG TABLET (FP) PO SCH (14:00)
[2020-11-08] MEDS ORDERED: BACLOFEN 10 MG TABLET (FP) ONE ×2 (14:01→22:20)
[2020-11-08] MEDS: BACLOFEN 10 MG TABLET (FP) PO SCH ×2 (14:16→22:25)
[2020-11-08] MEDS: TIZANIDINE HCL 4 MG TABLET PO PRN (16:11)
[2020-11-08] MEDS ORDERED: GABAPENTIN 100 MG CAPSULE ONE (22:20)
[2020-11-09] MEDS ORDERED: PIPERACILLIN/TAZOB 3.375 GM 3.375 GM/50 ML BAG IVPB ONE (01:58)
[2020-11-09] MEDS: PIPERACILLIN/TAZOB 3.375 GM 3.375 GM in DEXTROSE 5%-WATER - 50 ML IVPB SCH ×3 (02:09→17:14)
[2020-11-09 06:00] LABS: BASO % 1.1 % (0-2.0); EOS % 3.5 % (0-4.5); HEMATOCRIT 41.4 % (35.4-49); HEMOGLOBIN 14.5 GM/dL (11.7-16.9); LYMPH % 33.5 % (8-40); MCH 31.3 pg (25.7-33.7); MCHC 35.1 g/dl (32.0-35.9); MEAN CELL VOLUME 89.1 fl (80-96); MEAN PLT VOLUME 8.7 fl (7.5-11.1); MONO % 9.8 % (3.8-10.2); NEUT % 52.1 % (42.8-82.8); PLATELET COUNT 213 K/MM3 (134-434); RBC 4.65 M/mm3 (4.00-5.60); RDW 13.2 % (11.9-15.9); WHITE BLOOD COUNT 6.9 K/mm3 (4.0-10.0)
[2020-11-09 06:22] LABS: CALCIUM 8.9 mg/dL (8.5-10.1)
[2020-11-09 06:23] LABS: ALBUMIN 3.8 g/dl (3.4-5.0); BLOOD UREA NITROGEN 11.1 mg/dL (7-18); MAGNESIUM 1.8 mg/dL (1.8-2.4)
[2020-11-09 06:26] LABS: CREATININE 0.7 mg/dL (0.55-1.3)
[2020-11-09 06:27] LABS: BILIRUBIN,TOTAL 2.4 mg/dL (0.2-1)
[2020-11-09] MEDS: BACLOFEN 10 MG TABLET (FP) PO SCH ×3 (07:16→21:39)
[2020-11-09] MEDS ORDERED: POTASSIUM CHLORIDE TABS 20 MEQ TABLET.ER (FP) PO ONE (09:00)
[2020-11-09 10:40] VITALS: BMI 23.3
[2020-11-09] MEDS ORDERED: DEXTROSE 5%-WATER - 50 ML IVPB ONE ×2 (11:21→17:08)
[2020-11-09] MEDS ORDERED: PIPERACILLIN/TAZOBACTAM 3.375 GM VIAL IVPB ONE ×2 (11:21→17:08)
[2020-11-09] MEDS: ENOXAPARIN NA (PORCINE) 40 MG/0.4 ML DISP.SYRIN SQ SCH (11:24)
[2020-11-09] MEDS: BISACODYL 10 MG SUPP.RECT RC SCH (11:24)
[2020-11-09] MEDS: GABAPENTIN 300 MG CAPSULE PO SCH ×2 (11:25→21:39)
[2020-11-09] MEDS: PANTOPRAZOLE 20 MG TABLET PO SCH (11:25)
[2020-11-09] MEDS: POLYETHYLENE GLYCOL 3350 119 GM BTL PO SCH (11:28)
[2020-11-09] MEDS: TIZANIDINE HCL 4 MG TABLET PO PRN (18:01)
[2020-11-09] MEDS ORDERED: GLYCERIN 1 RECTAL SUPPOSITORY, ADULT PR PRN (22:01)
[2020-11-09] MEDS ORDERED: GLYCERIN 1 RECTAL SUPPOSITORY, ADULT RC PRN (22:06)
[2020-11-09] MEDS ORDERED: PT OWN MED DRAWER 7, Y5N ONE (23:51)
[2020-11-10] MEDS ORDERED: BISACODYL 10 MG SUPP.RECT PR ONE (00:17)
[2020-11-10] MEDS ORDERED: PIPERACILLIN/TAZOBACTAM 3.375 GM VIAL IVPB ONE ×3 (01:13→14:20)
[2020-11-10] MEDS ORDERED: DEXTROSE 5%-WATER - 50 ML IVPB ONE ×3 (01:13→14:20)
[2020-11-10] MEDS: PIPERACILLIN/TAZOB 3.375 GM 3.375 GM in DEXTROSE 5%-WATER - 50 ML IVPB SCH ×3 (01:17→17:28)
[2020-11-10] MEDS: BACLOFEN 10 MG TABLET (FP) PO SCH ×3 (06:53→22:28)
[2020-11-10 08:48] LABS: BASO % 0.9 % (0-2.0); EOS % 3.4 % (0-4.5); HEMOGLOBIN 14.2 GM/dL (11.7-16.9); LYMPH % 27.2 % (8-40); MCH 30.9 pg (25.7-33.7); MCHC 34.7 g/dl (32.0-35.9); MEAN PLT VOLUME 9.1 fl (7.5-11.1); MONO % 7.2 % (3.8-10.2); NEUT % 61.3 % (42.8-82.8); PLATELET COUNT 227 K/MM3 (134-434); RBC 4.61 M/mm3 (4.00-5.60); RDW 13.1 % (11.9-15.9); WHITE BLOOD COUNT 8.3 K/mm3 (4.0-10.0)
[2020-11-10 09:17] LABS: ALBUMIN 3.7 g/dl (3.4-5.0); CALCIUM 9.1 mg/dL (8.5-10.1)
[2020-11-10 09:18] LABS: BLOOD UREA NITROGEN 12.9 mg/dL (7-18); MAGNESIUM 1.9 mg/dL (1.8-2.4)
[2020-11-10 09:21] LABS: CREATININE 0.8 mg/dL (0.55-1.3)
[2020-11-10 09:22] LABS: BILIRUBIN,TOTAL 2.2 mg/dL (0.2-1); TOT PROT 6.8 g/dl (6.4-8.2)
[2020-11-10] MEDS: ENOXAPARIN NA (PORCINE) 40 MG/0.4 ML DISP.SYRIN SQ SCH (10:35)
[2020-11-10] MEDS: PANTOPRAZOLE 20 MG TABLET PO SCH (10:35)
[2020-11-10] MEDS: POLYETHYLENE GLYCOL 3350 119 GM BTL PO SCH (10:36)
[2020-11-10] MEDS: GABAPENTIN 300 MG CAPSULE PO SCH ×2 (10:36→22:28)
[2020-11-10] MEDS: BISACODYL 10 MG SUPP.RECT RC SCH ×2 (12:13→22:28)
[2020-11-10] MEDS: TIZANIDINE HCL 4 MG TABLET PO PRN (13:12)
[2020-11-10] MEDS ORDERED: PT OWN MED DRAWER 7, Y5N ONE ×2 (13:18→22:09)
[2020-11-10] MEDS: TIZANIDINE HCL 4 MG TABLET PO SCH ×2 (14:35→22:28)
[2020-11-10] MEDS: FLUDROCORTISONE ACETATE 0.1 MG TABLET (FP) PO SCH (16:06)
[2020-11-10] MEDS: LORATADINE 10 MG TABLET PO SCH (16:11)
[2020-11-11] MEDS ORDERED: DEXTROSE 5%-WATER - 50 ML IVPB ONE ×3 (02:58→13:29)
[2020-11-11] MEDS ORDERED: PIPERACILLIN/TAZOBACTAM 3.375 GM VIAL IVPB ONE ×2 (02:58→09:26)
[2020-11-11] MEDS: PIPERACILLIN/TAZOB 3.375 GM 3.375 GM in DEXTROSE 5%-WATER - 50 ML IVPB SCH ×3 (03:03→10:04)
[2020-11-11] MEDS: BACLOFEN 10 MG TABLET (FP) PO SCH ×3 (06:19→22:39)
[2020-11-11 08:50] LABS: BASO % 0.9 % (0-2.0); EOS % 5.2 % (0-4.5); HEMOGLOBIN 14.1 GM/dL (11.7-16.9); LYMPH % 39.9 % (8-40); MCH 31.1 pg (25.7-33.7); MCHC 34.5 g/dl (32.0-35.9); MEAN CELL VOLUME 90.2 fl (80-96); MEAN PLT VOLUME 9.2 fl (7.5-11.1); MONO % 8.5 % (3.8-10.2); NEUT % 45.5 % (42.8-82.8); PLATELET COUNT 232 K/MM3 (134-434); RBC 4.55 M/mm3 (4.00-5.60); WHITE BLOOD COUNT 6.7 K/mm3 (4.0-10.0)
[2020-11-11 08:56] LABS: ALBUMIN 3.6 g/dl (3.4-5.0); BLOOD UREA NITROGEN 15.2 mg/dL (7-18); CALCIUM 8.9 mg/dL (8.5-10.1)
[2020-11-11 09:00] LABS: CREATININE 0.8 mg/dL (0.55-1.3)
[2020-11-11 09:01] LABS: BILIRUBIN,TOTAL 1.6 mg/dL (0.2-1)
[2020-11-11 09:02] LABS: TOT PROT 6.8 g/dl (6.4-8.2)
[2020-11-11] MEDS ORDERED: PT OWN MED DRAWER 7, Y5N ONE ×2 (09:26→21:13)
[2020-11-11] MEDS: FLUDROCORTISONE ACETATE 0.1 MG TABLET (FP) PO SCH (10:04)
[2020-11-11] MEDS: ENOXAPARIN NA (PORCINE) 40 MG/0.4 ML DISP.SYRIN SQ SCH (10:05)
[2020-11-11] MEDS: TIZANIDINE HCL 4 MG TABLET PO SCH ×2 (10:05→22:39)
[2020-11-11] MEDS: LORATADINE 10 MG TABLET PO SCH (10:05)
[2020-11-11] MEDS: POLYETHYLENE GLYCOL 3350 119 GM BTL PO SCH (10:05)
[2020-11-11] MEDS: PANTOPRAZOLE 20 MG TABLET PO SCH (10:05)
[2020-11-11] MEDS: GABAPENTIN 300 MG CAPSULE PO SCH ×2 (10:05→22:39)
[2020-11-11] MEDS ORDERED: cefTRIAXone SODIUM 1 GM VIAL ONE (13:29)
[2020-11-11] MEDS: CEFTRIAXONE 1 GM in DEXTROSE 5%-WATER - 50 ML IVPB SCH (13:32)
[2020-11-11] MEDS ORDERED: SODIUM CHLORIDE 1,000 ML IV SCH (13:45)
[2020-11-11] MEDS: BISACODYL 10 MG SUPP.RECT RC SCH (22:39)
[2020-11-12] MEDS: BACLOFEN 10 MG TABLET (FP) PO SCH ×3 (06:37→21:29)
[2020-11-12 10:12] LABS: BASO % 0.8 % (0-2.0); EOS % 4.4 % (0-4.5); HEMATOCRIT 42.4 % (35.4-49); HEMOGLOBIN 14.5 GM/dL (11.7-16.9); LYMPH % 44.1 % (8-40); MCH 30.6 pg (25.7-33.7); MCHC 34.3 g/dl (32.0-35.9); MEAN CELL VOLUME 89.4 fl (80-96); NEUT % 44.7 % (42.8-82.8); PLATELET COUNT 234 K/MM3 (134-434); RBC 4.74 M/mm3 (4.00-5.60); RDW 13.3 % (11.9-15.9); WHITE BLOOD COUNT 6.8 K/mm3 (4.0-10.0)
[2020-11-12] MEDS ORDERED: SODIUM CHLORIDE 1,000 ML IV SCH (10:18)
[2020-11-12 10:23] LABS: ALBUMIN 3.7 g/dl (3.4-5.0); BLOOD UREA NITROGEN 12.1 mg/dL (7-18)
[2020-11-12 10:27] LABS: CREATININE 0.7 mg/dL (0.55-1.3); TOT PROT 6.9 g/dl (6.4-8.2)
[2020-11-12 10:42] LABS: BILIRUBIN,TOTAL 1.4 mg/dL (0.2-1); MAGNESIUM 1.7 mg/dL (1.8-2.4)
[2020-11-12] MEDS ORDERED: MAGNESIUM OXIDE 400 MG TABLET (FP) PO ONE (10:51)
[2020-11-12] MEDS ORDERED: PT OWN MED DRAWER 7, Y5N ONE (11:09)
[2020-11-12] MEDS ORDERED: cefTRIAXone SODIUM 1 GM VIAL ONE (11:09)
[2020-11-12] MEDS ORDERED: DEXTROSE 5%-WATER - 50 ML IVPB ONE (11:09)
[2020-11-12] MEDS: ENOXAPARIN NA (PORCINE) 40 MG/0.4 ML DISP.SYRIN SQ SCH (11:13)
[2020-11-12] MEDS: POLYETHYLENE GLYCOL 3350 119 GM BTL PO SCH (11:13)
[2020-11-12] MEDS: CEFTRIAXONE 1 GM in DEXTROSE 5%-WATER - 50 ML IVPB SCH (11:13)
[2020-11-12] MEDS: GABAPENTIN 300 MG CAPSULE PO SCH ×2 (11:14→21:29)
[2020-11-12] MEDS: FLUDROCORTISONE ACETATE 0.1 MG TABLET (FP) PO SCH (11:14)
[2020-11-12] MEDS: PANTOPRAZOLE 20 MG TABLET PO SCH (11:14)
[2020-11-12] MEDS: LORATADINE 10 MG TABLET PO SCH (11:14)
[2020-11-12] MEDS: TIZANIDINE HCL 4 MG TABLET PO SCH ×2 (11:14→22:02)
[2020-11-12] MEDS ORDERED: PATIENT'S OWN MEDICATION (NON-FORMULARY) (Mirabegron [Myrbetriq] 50 MG Tab.Er.24h) PO SCH (11:30)
[2020-11-12] MEDS: BISACODYL 10 MG SUPP.RECT RC SCH (21:29)
[2020-11-13] MEDS: BACLOFEN 10 MG TABLET (FP) PO SCH (06:30)
[2020-11-13 07:28] VITALS: TEMP 98.7
[2020-11-13] MEDS ORDERED: cefTRIAXone SODIUM 1 GM VIAL ONE (09:27)
[2020-11-13] MEDS ORDERED: DEXTROSE 5%-WATER - 50 ML IVPB ONE (09:27)
[2020-11-13] MEDS: CEFTRIAXONE 1 GM in DEXTROSE 5%-WATER - 50 ML IVPB SCH (10:29)
[2020-11-13] MEDS: ENOXAPARIN NA (PORCINE) 40 MG/0.4 ML DISP.SYRIN SQ SCH (10:29)
[2020-11-13] MEDS: LORATADINE 10 MG TABLET PO SCH (10:30)
[2020-11-13] MEDS: TIZANIDINE HCL 4 MG TABLET PO SCH (10:30)
[2020-11-13] MEDS: POLYETHYLENE GLYCOL 3350 119 GM BTL PO SCH (10:30)
[2020-11-13] MEDS: FLUDROCORTISONE ACETATE 0.1 MG TABLET (FP) PO SCH (10:30)
[2020-11-13] MEDS: GABAPENTIN 300 MG CAPSULE PO SCH (10:30)
[2020-11-13] MEDS: PANTOPRAZOLE 20 MG TABLET PO SCH (10:30)
[2020-11-13 11:46] VITALS: BP 125/77; PULSE 74
== END 2020-11-13 12:44 | disposition home health service (06) | DRG 699 ==
LOC: JER 14:33 → JERBED 17:36 → J8W 11-09 06:53
PROVIDERS: ADMIT Internal Medicine; ATTEND Nurse Practitioner Family
DX: T83.518A Infection and inflammatory reaction due to other urinary catheter, initial encounter (principal); N39.0 Urinary tract infection, site not specified; G82.20 Paraplegia, unspecified; G90.4 Autonomic dysreflexia; B96.20 Unspecified Escherichia coli [E. coli] as the cause of diseases classified elsewhere; J45.909 Unspecified asthma, uncomplicated; Y83.9 Surgical procedure, unspecified as the cause of abnormal reaction of the patient, or of later complication, without mention of misadventure at the time of the procedure
CPT/HCPCS: 36415; 74178-TC; 76775-TC; 76856-TC; 80053; 81003; 83735; 84100; 85025; 87040; 87086; 87186; 93005; 93010; 97161-GP; 99285-25; C9803; J0475; Q9967; U0003

== ENCOUNTER 2021-04-05 12:20 | Emergency (ER) | payer OTHER ==
[2021-04-05 12:28] VITALS: BP 93/56; PULSE 83; TEMP 97.8; BMI 23.6
== END 2021-04-05 14:05 | disposition home or self-care (01) ==
LOC: JER 12:20
DX: Z46.6 Encounter for fitting and adjustment of urinary device (principal)
CPT/HCPCS: 99284-25

== ENCOUNTER 2021-05-30 14:45 | Emergency (ER) | payer OTHER ==
[2021-05-30 14:51] VITALS: BMI 22.8
[2021-05-30 16:18] LABS: EPI CELLS 7 /uL (0-25.1); HYALINE CASTS 4 /uL (0-3.1); PH,URINE 7.5 (5.0-8.0); URINE APPEARANCE CLEAR; URINE BACTERIA 20 /uL (0-1359); URINE BILIRUBIN NEGATIVE (NEGATIVE); URINE COLOR YELLOW; URINE GLUCOSE (UA) NEGATIVE (NEGATIVE); URINE KETONE NEGATIVE (NEGATIVE); URINE LEUK ESTERASE 1+ (NEGATIVE); URINE NITRITE NEGATIVE (NEGATIVE); URINE PROTEIN NEGATIVE (NEGATIVE); URINE RBC 7 /uL (0-23.9); URINE UROBILINOGEN 0.2 mg/dL (0.2-1.0); URINE WBC 31 /uL (0-25.8)
[2021-05-30 16:29] LABS: BASO % 0.3 % (0-2.0); EOS % 3.6 % (0-4.5); HEMATOCRIT 40.1 % (35.4-49); HEMOGLOBIN 13.7 GM/dL (11.7-16.9); LYMPH % 28.1 % (8-40); MCH 30.6 pg (25.7-33.7); MCHC 34.1 g/dl (32.0-35.9); MEAN CELL VOLUME 89.7 fl (80-96); MONO % 8.3 % (3.8-10.2); NEUT % 59.7 % (42.8-82.8); PLATELET COUNT 187 10^3/uL (134-434); RBC 4.47 M/mm3 (4.00-5.60); RDW 13.9 % (11.9-15.9); WHITE BLOOD COUNT 5.9 K/mm3 (4.0-10.0)
[2021-05-30 16:57] LABS: ALBUMIN 3.6 g/dl (3.4-5.0); CALCIUM 8.9 mg/dL (8.5-10.1)
[2021-05-30 17:02] LABS: TOT PROT 6.7 g/dl (6.4-8.2)
[2021-05-30] MEDS ORDERED: SODIUM CHLORIDE 0.9% 500 ML INFUS.BAG IV ONE (17:59)
[2021-05-30 18:08] VITALS: BP 97/59; PULSE 61; TEMP 97.7
== END 2021-05-30 18:31 | disposition home or self-care (01) ==
LOC: JER 14:45
DX: Z46.6 Encounter for fitting and adjustment of urinary device (principal)
CPT/HCPCS: 36415; 80053; 81003; 85025; 87086; 99283-25

== ENCOUNTER 2021-07-29 16:37 | Emergency (ER) | payer OTHER ==
[2021-07-29 17:08] VITALS: BP 113/73; PULSE 69; TEMP 98.3; BMI 23.6
== END 2021-07-29 20:17 | disposition home or self-care (01) ==
LOC: JER 16:37 → JERFT 16:37
DX: M79.601 Pain in right arm (principal); M79.602 Pain in left arm; M79.671 Pain in right foot; M79.672 Pain in left foot
CPT/HCPCS: 73562-TC-LT-FY; 73590-TC-LT-FY; 73610-TC-LT-FY; 73610-TC-RT-FY; 73630-TC-LT; 73630-TC-RT-FY; 99284-25

== ENCOUNTER 2021-09-24 12:28 | Emergency (ER) | payer OTHER ==
[2021-09-24 12:50] VITALS: BP 89/53; PULSE 66; TEMP 97.7; BMI 24.0
[2021-09-24 15:28] LABS: EPI CELLS 6 /uL (0-25.1); HYALINE CASTS 0 /uL (0-3.1); PH,URINE 6.5 (5.0-8.0); URINE APPEARANCE CLEAR; URINE BACTERIA 2 /uL (0-1359); URINE BILIRUBIN NEGATIVE (NEGATIVE); URINE COLOR YELLOW; URINE GLUCOSE (UA) NEGATIVE (NEGATIVE); URINE KETONE NEGATIVE (NEGATIVE); URINE LEUK ESTERASE TRACE (NEGATIVE); URINE NITRITE NEGATIVE (NEGATIVE); URINE PROTEIN NEGATIVE (NEGATIVE); URINE RBC 1 /uL (0-23.9); URINE UROBILINOGEN 0.2 mg/dL (0.2-1.0); URINE WBC 5 /uL (0-25.8)
== END 2021-09-24 17:36 | disposition home or self-care (01) ==
LOC: JER 12:28
DX: G82.20 Paraplegia, unspecified (principal); R10.2 Pelvic and perineal pain
CPT/HCPCS: 76870-TC; 81003; 87086; 99284-25

== ENCOUNTER 2021-12-11 11:46 | Emergency (ER) | payer OTHER ==
[2021-12-11 12:13] VITALS: BP 126/86; PULSE 94; TEMP 98.4; BMI 23.6
[2021-12-11] MEDS ORDERED: ACETAMINOPHEN 500 MG TABLET (FP) PO ONE (12:38)
[2021-12-11] MEDS ORDERED: SODIUM CHLORIDE 0.9% 500 ML INFUS.BAG IV ONE (12:41)
[2021-12-11] MEDS ORDERED: ACETAMINOPHEN 325 MG TABLET (FP) ONE (12:54)
[2021-12-11 13:04] LABS: EPI CELLS 35 /uL (0-25.1); HYALINE CASTS 10 /uL (0-3.1); URINE APPEARANCE CLOUDY; URINE BILIRUBIN 1+ (NEGATIVE); URINE COLOR ORANGE; URINE GLUCOSE (UA) NEGATIVE (NEGATIVE); URINE KETONE 1+ (NEGATIVE); URINE LEUK ESTERASE 1+ (NEGATIVE); URINE NITRITE NEGATIVE (NEGATIVE); URINE PROTEIN 1+ (NEGATIVE); URINE RBC 17 /uL (0-23.9); URINE WBC 130 /uL (0-25.8)
[2021-12-11 13:19] LABS: HEMATOCRIT 40.3 % (35.4-49); MCH 31.1 pg (25.7-33.7); MCHC 34.8 g/dl (32.0-35.9); MEAN CELL VOLUME 89.2 fl (80-96); MEAN PLT VOLUME 9.3 fl (7.5-11.1); RBC 4.51 M/mm3 (4.00-5.60); RDW 12.9 % (11.9-15.9); WHITE BLOOD COUNT 11.8 K/mm3 (4.0-10.0)
[2021-12-11 13:44] LABS: CALCIUM 9.1 mg/dL (8.5-10.1)
[2021-12-11 13:45] LABS: ALBUMIN 3.6 g/dl (3.4-5.0)
[2021-12-11 13:47] LABS: CREATININE 0.6 mg/dL (0.55-1.3)
[2021-12-11 13:50] LABS: BILIRUBIN,TOTAL 4.8 mg/dL (0.2-1); TOT PROT 6.8 g/dl (6.4-8.2)
[2021-12-11 14:30] LABS: URINE BACTERIA 5.6 /uL (0-1359)
[2021-12-11 14:38] LABS: ANISOCYTOSIS 0; HELMET CELLS 0; HOWELL-JOLLY BODIES 0; MACROCYTOSIS 0; OVALOCYTE 0; PLATELET ESTIMATE DECREASED; ROULEAU 0; SICKELED CELLS 0; TARGET CELLS 0; TEAR DROP CELLS 0; TOXIC GRANULATION 0
[2021-12-11 15:03] LABS: PLATELET COUNT 118 10^3/uL (134-434)
== END 2021-12-11 15:09 | disposition home or self-care (01) ==
LOC: JER 11:46
DX: N39.0 Urinary tract infection, site not specified (principal); R82.90 Unspecified abnormal findings in urine
CPT/HCPCS: 36415; 71045-TC-FY; 80053; 81003; 85025; 87086; 99284-25; C9803; U0003; U0005

== ENCOUNTER 2023-01-29 13:41 | Emergency (ER) | payer OTHER ==
[2023-01-29 13:48] VITALS: TEMP 98.6; BMI 22.8
[2023-01-29] MEDS ORDERED: IBUPROFEN 400 MG TABLET (FP) PO ONE ×2 (14:20→14:31)
[2023-01-29 14:58] LABS: PH,URINE 7.5 (5.0-8.0); URINE APPEARANCE CLEAR; URINE BILIRUBIN NEGATIVE (NEGATIVE); URINE COLOR YELLOW; URINE GLUCOSE (UA) NEGATIVE (NEGATIVE); URINE KETONE NEGATIVE (NEGATIVE); URINE LEUK ESTERASE NEGATIVE (NEGATIVE); URINE NITRITE NEGATIVE (NEGATIVE); URINE PROTEIN NEGATIVE (NEGATIVE)
[2023-01-29] MEDS ORDERED: ACETAMINOPHEN 500 MG TABLET (FP) PO ONE (15:42)
[2023-01-29] MEDS ORDERED: ACETAMINOPHEN 500 MG TABLET (FP) ONE (15:49)
[2023-01-29 16:33] VITALS: BP 104/72; PULSE 75; RESP 20
== END 2023-01-29 16:33 | disposition home or self-care (01) ==
LOC: JER 13:41
DX: N43.3 Hydrocele, unspecified (principal); N50.811 Right testicular pain
CPT/HCPCS: 76870-TC; 81003; 87086; 99284-25

== ENCOUNTER 2025-08-18 01:17 | Emergency (ER) | payer OTHER ==
[2025-08-18 01:26] VITALS: BMI 22.1
[2025-08-18] MEDS ORDERED: IBUPROFEN 400 MG TABLET (FP) PO ONE (02:28)
[2025-08-18] MEDS ORDERED: ACETAMINOPHEN 500 MG TABLET (FP) ONE (02:29)
[2025-08-18] MEDS: IBUPROFEN 400 MG TABLET (FP) PO ONE (02:45)
[2025-08-18] MEDS: ACETAMINOPHEN 500 MG TABLET (FP) PO ONE (02:45)
[2025-08-18] MEDS ORDERED: fentaNYL CITRATE 250 MCG/5 ML VIAL ONE (03:35)
[2025-08-18] MEDS: fentaNYL CITRATE 250 MCG/5 ML VIAL IVPUSH ONE (03:59)
[2025-08-18] MEDS: LACTATED RINGERS SOLUTION 1000 ML INFUS.BAG IV ONE (03:59)
[2025-08-18 04:26] LABS: ABSOLUTE IMMATURE GRANULOCYTES 0.01 x10^3/uL (0.0-0.031); BASOPHILS # 0.05 x10^3/uL (0.01-0.08); EOSINOPHIL % 1.7 % (0.8-7.0); EOSINOPHILS # 0.15 x10^3/uL (0.04-0.54); MCHC 33.4 g/dl (32.3-36.5); MEAN CELL VOLUME 92.7 fl (79.0-92.2); MEAN PLT VOLUME 11.4 fl (9.4-12.4); MONOCYTE # 0.44 x10^3/uL (0.30-0.82); MONOCYTE % 5.1 % (5.3-12.2); RDW 12.7 % (11.9-15.3)
[2025-08-18 05:06] LABS: GLUCOSE,RANDOM 124.0 mg/dL (74-106); TOT PROT 6.2 g/dl (6.4-8.2)
[2025-08-18 05:07] LABS: CO2 24.0 mmol/L (21-32)
[2025-08-18 05:09] LABS: ALK PHOS 58.0 U/L (40-150)
[2025-08-18 05:11] LABS: SGOT/AST 19.0 U/L (5-34); SGPT/ALT 21.0 U/L (0-55)
[2025-08-18 05:12] LABS: CREATININE 0.75 mg/dL (0.55-1.3)
[2025-08-18] MEDS ORDERED: KETOROLAC TROMETHAMINE 30 MG/1 ML VIAL ONE (06:38)
[2025-08-18 06:42] LABS: EPI CELLS 5 /uL (0-25.1); HYALINE CASTS 0 /uL (0-3.1); URINE APPEARANCE CLEAR; URINE BACTERIA 12 /uL (0-1359); URINE BILIRUBIN NEGATIVE (NEGATIVE); URINE COLOR YELLOW; URINE GLUCOSE (UA) NEGATIVE (NEGATIVE); URINE KETONE NEGATIVE (NEGATIVE); URINE LEUK ESTERASE TRACE (NEGATIVE); URINE NITRITE NEGATIVE (NEGATIVE); URINE PROTEIN NEGATIVE (NEGATIVE); URINE UROBILINOGEN 0.2 mg/dL (0.2-1.0); URINE WBC 37 /uL (0-25.8)
[2025-08-18] MEDS: KETOROLAC TROMETHAMINE 30 MG/1 ML VIAL IVPUSH ONE (06:46)
[2025-08-18 09:27] LABS: URINE RBC 86.1 /uL (0-23.9)
[2025-08-18 10:12] VITALS: BP 108/62; PULSE 85; RESP 19; TEMP 98
== END 2025-08-18 10:14 | disposition home or self-care (01) ==
LOC: JER 01:17
PROC: 3E033NZ Introduction of Analgesics, Hypnotics, Sedatives into Peripheral Vein, Percutaneous Approach (ICD-10-PCS; principal; 2025-08-18)
PROC: 3E0333Z Introduction of Anti-inflammatory into Peripheral Vein, Percutaneous Approach (ICD-10-PCS; 2025-08-18)
DX: N50.811 Right testicular pain (principal)
CPT/HCPCS: 36415; 74177-TC; 76870-TC; 80053; 81003; 85025; 87086; 96374; 96375; 99285-25; Q9967